=== PATIENT | male | born 1945 ===

== ENCOUNTER 2016-07-07 00:02 | Inpatient (IN) | payer MEDICARE ==
--- NOTE | 2016-07-07 00:25 | ED PDOC ---
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 Son states he was busy and did not have a chance to check on patient during the day. When son found patient by bed patient told son he fell out of bed and hit his head against nightstand. NIHSS Stroke Scale - Date/Time Evaluation Performed Date Performed: 07/07/16 Time Performed: 00:14 When Was NIHSS Performed: Code Stroke - How Severe is the Stroke Level of Consciousness: 1=Drowsy LOC to Questions: 1=One correct LOC to commands: 0=Obeys both correctly Best Gaze: 0=Normal Visual: 0=No visual loss Facial: 1=Minor asymmetry Motor Arm - Left: 3=No effort against gravity (falls immediately) Motor Arm - Right: 0=No drift Motor Leg - Left: 4=No movement Motor Leg - Right: 0=No drift Limb Ataxia: 1=Present Upper or Lower Sensory: 0=Normal Best Language: 1=Mild to moderate aphasia Dysarthia: 1=Mild to moderate slurring Extinction & Inattention (Neglect): 1=Partial neglect (mild owen-attention) Score: 14 rTPA Inclusion/Exclusion - Refusal of Treatment Patient Refused Treatment: No - Inclusion Criteria for Altepase Patient is 18 years or Older: Yes The Clinical Diagnosis of Ischemic Stroke That is Causing a Potentially Disabling Neurological Deficit: No Time of Onset is Well Established to be Less Than 270 Minute Before Treatment Would Begin: No Risk/Benefit Discussed With Patient/Family Member Present: No Past Medical History Reviewed: Historical Data, Nursing Documentation, Vital Signs Vital Signs: Last Vital Signs Temp 98.9 F 07/07/16 00:04 Pulse 65 07/07/16 00:04 Resp 16 07/07/16 00:04 BP 178/75 H 07/07/16 00:04 Pulse Ox 98 07/07/16 00:04 - Medical History PMH: Diabetes, HTN - Surgical History Surgical History: No Surg Hx - Family History Family History: States: No Known Family Hx - Home Medications Home Medications: Ambulatory Orders Medication Instructions Recorded Aspirin [Adult Low Dose Aspirin EC] 81 mg PO DAILY 07/07/16 GlipiZIDE [Glucotrol] 10 mg PO BID 07/07/16 Losartan [Cozaar] 100 mg PO DAILY 07/07/16 Tamsulosin [Flomax] 0.4 mg PO DAILY 07/07/16 amLODIPine [Norvasc] 5 mg PO DAILY 07/07/16 metFORMIN [glucOPHAGE] 1,000 mg PO BID 07/07/16 - Allergies Allergies/Adverse Reactions: Allergies Allergy/AdvReac Type Severity Reaction Status Date / Time No Known Allergies Allergy Verified 07/07/16 00:03 Review of Systems ROS Statement: Except As Marked, All Systems Reviewed And Found Negative Musculoskeletal: Positive for: Other (head injury ) Physical Exam - Reviewed Nursing Documentation Reviewed: Yes Vital Signs Reviewed: Yes - Physical Exam Appears: Positive for: No Acute Distress (disoriented appearing ) Head Exam: Positive for: ATRAUMATIC, NORMAL INSPECTION, NORMOCEPHALIC Skin: Positive for: Normal Color, Warm, Dry Eye Exam: Positive for: Normal appearance, EOMI, PERRL ENT: Positive for: Normal ENT Inspection Neck: Positive for: Normal, Painless ROM, Supple Cardiovascular/Chest: Positive for: Regular Rate, Rhythm. Negative for: Murmur , Tachycardia Respiratory: Positive for: Normal Breath Sounds. Negative for: Wheezing, Respiratory Distress Gastrointestinal/Abdominal: Positive for: Normal Exam, Soft. Negative for: Tenderness Back: Positive for: Normal Inspection. Negative for: L CVA Tenderness, R CVA Tenderness Extremity: Negative for: Tenderness, Deformity, Swelling Neurologic/Psych: Positive for: Alert, Facial Droop (left sided ), Other (1/5 strength LUE, 0/5 strength LLE, 5/5 strength RUE and RLE, dysarthria ). Negative for: Oriented (disoriented ) - Laboratory Results Result Diagrams: 07/07/16 00:40 07/07/16 00:40 - ECG O2 Sat by Pulse Oximetry: 98 Pulse Ox Interpretation: Normal (RA) Medical Decision Making Medical Decision Makin: Impression: CVA vs. intracranial bleed. Plan: CT head EKG Type and screen Labs CXR IVF reassess 0035: CT head impression: Right thalamic intracranial hemorrhage extending into the right lateral ventricle with 1 cm of midline shift, and surrounding vasogenic edema. Difficult to ascertain whether trauma caused the bleed or whether bleed caused the fall? 0040: Case discussed with Dr. Zarate who states patient requires no acute surgical intervention. Advised neurology consult, elevatation of head, ICU admission. States mannitol is not needed at this time, no comment on steroids. Neurology paged. 0051: Spoke with Dr. Rojas who accepted the patient. Neuro exam unchanged. 0116: CT c-spine impression: No acute injury. 330AM: Dr. Rivera called back, stated that patient may in fact benefit from EVD , recommended dexamethasone 4mg IV and keppra 500mg. Spoke with Dr. Zarate once again at 3:53AM and asked about potential EVD, Dr. Zarate states that there is no signs of hydrocephalus at this time, therefore no need for EVD at this time and patient can be watched. 5AM: No change in clinical status. Pt's BP well monitored and maintained while on cardene drip. ICU bed now available. Scribe Attestation: Documented by Chris John acting as a scribe for Abdiel Jackson MD. Provider Scribe Attestation: All medical record entries made by the Scribe were at my direction and personally dictated by me. I have reviewed the chart and agree that the record accurately reflects my personal performance of the history, physical exam, medical decision making, and the department course for this patient. I have also personally directed, reviewed, and agree with the discharge instructions and disposition. Disposition - Clinical Impression Clinical Impression: Intracranial hemorrhage - Patient ED Disposition Is Patient to be Admitted: Yes - Disposition Disposition Time: 00:51 Condition: CRITICAL - POA Present On Arrival: None
[2016-07-07 00:58] LABS: BASO % 0.7 % (0.0-2.0); HEMATOCRIT 37.3 % (35.0-51.0); LYMPH # 0.3 K/uL (1.0-4.3); LYMPH % 3.9 % (20.0-40.0); MEAN CELL VOLUME 85.1 fl (80.0-94.0); MEAN CORPUSCULAR HEMOGLOBIN 28.5 pg (27.0-31.0); MEAN CORPUSCULAR HGB CONC 33.5 g/dL (33.0-37.0); MEAN PLATELET VOLUME 8.1 fl (7.2-11.7); MONO # 0.2 K/uL (0.0-0.8); NEUT # 6.5 K/uL (1.8-7.0); NEUT % 92.4 % (50.0-75.0); PLATELET COUNT 206 K/uL (130-400); RED CELL DISTRIBUTION WIDTH 14.2 % (11.5-14.5)
--- NOTE | 2016-07-07 01:06 | CP.PCM.HP ---
History of Present Illness - History of Present Illness History of Present Illness: PCP: Maurice Diaz MD Chief Complaint:Left side weakness HPI: The Hx is obtained from the patient's Son and the patient. He is a 71 years old male with hx of HTN, DM II and Prostate Cancer, brought to the ED with left sided weakness. He fell out of bed and his head and could not get up from the floor where he remained for approximately 24 hours until his son found him. In the ED the patient was awake and alert and speaking. The NIHSS was 14. TPA was contraindicated because the patient was last seen 24 hours prior. PMH: HTN; DM II; Prostate Ca PSH: No known surgical hx SH: No Illegal drug use; No alcohol use; Former Smoker; Lives in the same building with his son FH: Unknown family hx Allergies: NKDA Present on Admission - Present on Admission Any Indicators Present on Admission: Yes History of DVT/PE: No History of Uncontrolled Diabetes: Yes Urinary Catheter: No Decubitus Ulcer Present: No Review of Systems - Review of Systems Review of Systems: Review of systems limited because of the patients Dysarthria and Neurological dysfunction. Past Patient History - Past Medical History & Family History Past Medical History?: Yes - Past Social History Smoking Status: Former Smoker Chewing Tobacco Use: No Cigar Use: No Alcohol: None Drugs: Denies Home Situation {Lives}: With Family - CARDIAC Hx Hypertension: Yes - PULMONARY Hx Respiratory Disorders: No - NEUROLOGICAL Hx Neurological Disorder: No - HEENT Hx HEENT Problems: No - RENAL Hx Chronic Kidney Disease: No - ENDOCRINE/METABOLIC Hx Diabetes Mellitus Type 2: Yes - HEMATOLOGICAL/ONCOLOGICAL Hx Blood Disorders: No - INTEGUMENTARY Hx Dermatological Problems: No - MUSCULOSKELETAL/RHEUMATOLOGICAL Hx Musculoskeletal Disorders: No - GASTROINTESTINAL Hx Gastrointestinal Disorders: No - GENITOURINARY/GYNECOLOGICAL Hx Prostate Cancer: Yes - PSYCHIATRIC Hx Psychophysiologic Disorder: No Hx Substance Use: No - SURGICAL HISTORY Hx Surgeries: No - ANESTHESIA Hx Anesthesia: No Meds Allergies/Adverse Reactions: Allergies Allergy/AdvReac Type Severity Reaction Status Date / Time No Known Allergies Allergy Verified 07/07/16 00:03 Physical Exam - Constitutional Appears: No Acute Distress - Head Exam Head Exam: ATRAUMATIC Additional comments: left facial weakness - Eye Exam Eye Exam: EOMI, Normal appearance Pupil Exam: NORMAL ACCOMODATION, PERRL - ENT Exam ENT Exam: Mucous Membranes Moist, Normal Exam, Normal External Ear Exam, Normal Oropharynx Additional comments: Edentulous - Neck Exam Neck exam: Positive for: Normal Inspection. Negative for: Lymphadenopathy, Tenderness - Respiratory Exam Respiratory Exam: Clear to Auscultation Bilateral. absent: Rales, Rhonchi, Wheezes - Cardiovascular Exam Cardiovascular Exam: REGULAR RHYTHM, RRR, +S1, +S2. absent: Gallop, JVD - GI/Abdominal Exam GI & Abdominal Exam: Normal Bowel Sounds, Soft. absent: Mass, Organomegaly, Tenderness - Rectal Exam Rectal Exam: Deferred - Extremities Exam Extremities exam: Positive for: normal inspection. Negative for: calf tenderness, pedal edema Additional comments: Decreased range of motion at the left upper and lower extremities. - Back Exam Back exam: NORMAL INSPECTION. absent: CVA tenderness (L), CVA tenderness (R) - Neurological Exam Additional comments: Awake alert, oriented in place time and person, nleft facial droop, mild dysarthria, weakness to the left upper extremity 1/5 and to the left lower extremity 0/5; Plantar reflex is extension at the left foot and flexion at the right foot - Psychiatric Exam Psychiatric exam: Normal Affect, Normal Mood - Skin Skin Exam: Dry, Intact, Normal Color, Warm Results - Vital Signs Recent Vital Signs: Last Vital Signs Temp 98.9 F 07/07/16 00:04 Pulse 65 07/07/16 00:04 Resp 16 07/07/16 00:04 BP 178/75 H 07/07/16 00:04 Pulse Ox 98 07/07/16 01:01 - Labs Result Diagrams: 07/07/16 00:40 07/07/16 00:40 Labs: Laboratory Results - last 24 hr 07/07/16 00:40 WBC 7.0 RBC 4.38 L Hgb 12.5 Hct 37.3 MCV 85.1 MCH 28.5 MCHC 33.5 RDW 14.2 Plt Count 206 MPV 8.1 Neut % (Auto) 92.4 H Lymph % (Auto) 3.9 L [place] % (Auto) 3.0 Eos % (Auto) 0.0 Baso % (Auto) 0.7 Neut # 6.5 Lymph # 0.3 L [place] # 0.2 Eos # 0.0 Baso # 0.0 - Imaging and Cardiology CT- Cervical Spine Status: Report reviewed by me Additional comment: FINDINGS: There are degenerative changes in the osseous structures.Osteophyte formation and articular facet joint hypertrophy is present. The vertebral bodies and facet joints are well aligned. The vertebral body height is well maintained. No subluxation. No fractures. Corticated osseous fragment posterior to C5 spinous process. IMPRESSION: No acute injury. CT scan - head Status: Report reviewed by me Additional comment: FINDINGS: Brain: Acute intracranial hemorrhage is identified within the right thalamus extending into the right lateral ventricle. Mass effect is identified, with 1 cm midline shift. The left cerebral hemisphere is unremarkable. Surrounding vasogenic edema is also detected. Bones: No acute displaced fracture. Sinuses: Unremarkable as visualized. No acute sinusitis. Mastoid air cells: Unremarkable as visualized. No mastoid effusion. IMPRESSION: Right thalamic intracranial hemorrhage extending into the right lateral ventricle with 1 cm of midline shift, and surrounding vasogenic edema. Thank you for allowing us to participate in the care of your patient Assessment & Plan - Assessment and Plan (Free Text) Assessment: #. Intracraneal Hemorrhage #. Dehydration #. Hyperkalemia #. DM II with hyperglycemia #. HTN #. Anemia Plan: 71 years old male with hx of HTN, DM II and Prostate Cancer, brought to the ED with left sided weakness. He fell out of bed and his head and could not get up from the floor where he remained for approximately 24 hours until his son found him. The NIHSS was 14. TPA was contraindicated because the patient was last seen 24 hours prior. #. Intracraneal Hemorrhage with left hemiplegia - Consult Neuro Surgery Dr Zarate - Consult Dr Rivera neurology - Admit to ICU - Control blood pressure with Nicardipine IV drip to maintain MAP 100-110 and [id number] - NPO until cleared by Swallow evaluation - Physical therapy/ Occupational Therapy #. Dehydration - IV Fluids - follow renal labs #. Hyperkalemia - Follow electrolytes #. DM II with hyperglycemia - Novolog sliding scale according to Accucheck - Follow HbA1c #. HTN - Control BP with Nicardipine, Change to oral medication when patient begins to take Oral feeds #. Anemia - follow Iron panel; Vitamin B12 and folate #. Stress ulcer Prophylaxis with Pepcid #. DVT prophylaxis with SCD Code Status; Full - Date & Time Date: 07/07/16 Time: 01:05
[2016-07-07 01:17] LABS: PARTIAL THROMBOPLASTIN TIME 26.9 SECONDS (23.3-32.5)
[2016-07-07 01:18] LABS: ALB/GLOB RATIO 1.3 (1.0-2.1); BILIRUBIN,TOTAL 0.7 mg/dl (0.2-1.3); CALCIUM 9.6 mg/dL (8.4-10.2); POTASSIUM 5.5 MMOL/L (3.6-5.0); TOTAL PROTEIN 8.8 G/DL (6.3-8.2)
[2016-07-07 01:31] LABS: TROPONIN I 0.024 ng/mL (0.00-0.120)
[2016-07-07 01:55] LABS: NEUTROPHIL 91 % (42-75); TOTAL CELLS COUNTED 100
[2016-07-07] MEDS ORDERED: Insulin Regular 100 units/ml SC SCH (02:15)
[2016-07-07] MEDS: Sodium Chloride 0.9% 1,000 ML IV SCH ×3 (03:10→22:30)
[2016-07-07] MEDS ORDERED: Nicardipine 20 MG/200 ML 20 MG/200 ML BAG IV ONE (03:15)
[2016-07-07] MEDS ORDERED: Dexamethasone 4 mg/1 ml ONE (03:41)
[2016-07-07] MEDS ORDERED: Dexamethasone 4 MG in Sodium Chloride 0.9% 50 ML IV ONE (03:42)
[2016-07-07] MEDS ORDERED: levETIRAcetam 500 MG in Sodium Chloride 0.9% 100 ML IVPB ONE (03:43)
[2016-07-07 05:34] LABS: RBC URINE 5 /hpf (0-3); URINE BACTERIA RARE (<OCC); URINE BILIRUBIN NEGATIVE (NEGATIVE); URINE BLOOD MODERATE (NEGATIVE); URINE COLOR YELLOW (YELLOW); URINE GLUCOSE (UA) 150 mg/dL (Normal); URINE KETONE TRACE mg/dL (NEGATIVE); URINE LEUKOCYTE ESTERASE NEG Leu/uL (Negative); URINE PROTEIN >=500 mg/dL (NEGATIVE); URINE UROBILINOGEN 0.2-1.0 mg/dL (0.2-1.0); WBC URINE 1 /hpf (0-5)
[2016-07-07] MEDS: Nicardipine 20 MG/200 ML 20 MG/200 ML BAG IV ONE ×4 (08:19→15:12)
--- NOTE | 2016-07-07 08:35 | CARD ---
APPROVED REPORT EKG Measurement Heart [id number] <Conclusion> Sinus bradycardia with AV dissociation and Junctional rhythm Abnormal ECG
[2016-07-07 09:10] LABS: BLOOD UREA NITROGEN 44 mg/dl (9-20); CALCIUM 9.2 mg/dL (8.4-10.2); CARBON DIOXIDE 17 mmol/L (22-30); CHLORIDE 109 mmol/L (98-107); GFR AFRICAN-AMERICAN 48; GLUCOSE,RANDOM 241 mg/dL (75-110); POTASSIUM 4.5 MMOL/L (3.6-5.0); SODIUM 142 mmol/l (132-148)
[2016-07-07 09:15] LABS: IRON 74 ug/dL (49-181)
--- NOTE | 2016-07-07 09:46 | CT ---
PROCEDURE: CT HEAD WITHOUT CONTRAST. HISTORY: code stroke- L sided hemiparesis COMPARISON: None available. TECHNIQUE: Axial computed tomography images were obtained through the head/brain without intravenous contrast. Radiation dose: Total exam DLP = 1219.0 mGy-cm. This CT exam was performed using one or more of the following dose reduction techniques: Automated exposure control, adjustment of the mA and/or kV according to patient size, and/or use of iterative reconstruction technique. FINDINGS: HEMORRHAGE: There is a moderate-sized elliptical hematoma within the right posterior basal ganglia with a thin rim of low-attenuation edema and or necrotic brain tissue. The hemorrhage has decompressed into the ventricular system with blood seen in the right lateral ventricle as well as atria and occipital horns bilaterally. Hematoma and surrounding the tendon edema exert mass effect with compression of the right lateral ventricle which is slightly displaced to the left side. There is also mild shift of the septum pellucidum from right to left estimated at approximately 6.25 mm. There is also mild posteromedial compression of the right temporal horn. BRAIN: Mild chronic periventricular white matter ischemic changes are present. Tiny chronic appearing lacunar type infarct left basal ganglia. VENTRICLES: As above CALVARIUM: Calvarium appears intact. PARANASAL SINUSES: Unremarkable as visualized. No significant inflammatory changes. MASTOID AIR CELLS: Unremarkable as visualized. No inflammatory changes. OTHER FINDINGS: None. IMPRESSION: Right basal ganglia hematoma likely hypertensive in origin however clinical correlation recommended to exclude other etiologies including underlying vascular lesion. Amyloid angiography would be less likely in this location though also not completely excluded. There is intraventricular extension of hemorrhage and mild [id number] midline shift as above. Mild chronic periventricular white matter ischemic changes with chronic appearing lacunar type infarct left basal ganglia.
--- NOTE | 2016-07-07 09:55 | CT ---
PROCEDURE: CT HEAD WITHOUT CONTRAST. HISTORY: f/u, ICH COMPARISON: None available. TECHNIQUE: Axial computed tomography images were obtained through the head/brain without intravenous contrast. Radiation dose: Total exam DLP = 895.24 mGy-cm. This CT exam was performed using one or more of the following dose reduction techniques: Automated exposure control, adjustment of the mA and/or kV according to patient size, and/or use of iterative reconstruction technique. FINDINGS: HEMORRHAGE: Acute parenchymal hematoma right basal ganglia. . This hemorrhage which may be hypertensive in origin surrounded by a rim of edema and/or necrotic brain tissue. . There has been decompression of hemorrhage into the ventricular system however the amount of intraventricular hemorrhage appears to have diminished likely due to some mild washout and resorption. Persistent but slightly improvement surrounding mass effect with diminished uqjky-[id number]-[id number] midline shift. No new hemorrhages. . No evidence of obstructive type hydrocephalus. BRAIN: Chronic periventricular white matter ischemic changes with chronic appearing left basal ganglia lacunar type infarct of the latter of which is less well seen on this exam as compared prior study. VENTRICLES: As above CALVARIUM: Unremarkable. PARANASAL SINUSES: Unremarkable as visualized. No significant inflammatory changes. MASTOID AIR CELLS: Unremarkable as visualized. No inflammatory changes. OTHER FINDINGS: None. IMPRESSION: Re- demonstrated is an acuteparenchymal hematoma right basal ganglia. . This hemorrhage which may be hypertensive in origin surrounded by a rim of edema and/or necrotic brain tissue. . There has been decompression of hemorrhage into the ventricular system however the amount of intraventricular hemorrhage appears to have diminished likely due to some mild washout and resorption. Persistent but slightly improvement surrounding mass effect with diminished [id number] midline shift. No new hemorrhages. . No evidence of obstructive type hydrocephalus. Moderate chronic periventricular white matter ischemic changes.
--- NOTE | 2016-07-07 09:57 | CT ---
PROCEDURE: CT Cervical Spine without contrast HISTORY: <r/o fracture> COMPARISON: None available. TECHNIQUE: Axial computed tomography images were obtained of the cervical spine without the use of intravenous contrast. Coronal and sagittal reformatted images were created and reviewed. Radiation dose: Total exam DLP = 572.12 mGy-cm. This CT exam was performed using one or more of the following dose reduction techniques: Automated exposure control, adjustment of the mA and/or kV according to patient size, and/or use of iterative reconstruction technique. FINDINGS: VERTEBRAE: No evidence of acute compression fractures no retropulsed fragments. Vertebral bodies exhibit relatively normal stature of. Vertebral bodies and facets normally aligned. There may be partial fusion of the C3 and C4 segments with intradiscal calcification along the anterior disc margin and thin bridging osteophyte along the posterior cortical margin. DISCS/SPINAL CANAL/NEURAL FORAMINA: Multilevel degenerative spondylosis. At the C2-C3 level, there is mild posterior disc space narrowing. Small central and bilateral osteophytic ridge indents the ventral surface of thecal sac nearly reaching but not significantly compressing the ventral surface of the cord. The facets are hypertrophic right greater than left. Exit foramina appear adequate of right-sided which is slightly smaller in caliber than the left. At the C3-C4 level, small central and bilateral osteophytic ridge indents the ventral surface of thecal sac reaching the ventral surface of the cord however no significant cord compression. Central canal appears adequate. Minor degenerative squaring of the uncovertebral joints. Facets are hypertrophic left greater than right. Left exit foramen is stenotic. Right exit foramen is marginal to minimally narrowed. At the C4-C5 level, small central and bilateral osteophytic ridge disc bulge complex indents the ventral surface of the thecal sac and may minimally indent the ventral surface of the cord. Central canal appears marginal to adequate. Facets are slightly overgrown. Exit foramina are adequate. At the C5-C6 level, there is disc space narrowing with cortical endplate irregularity and subchondral cystic changes with smaller vacuum disc phenomena. Small osteophytic ridge disc bulge complex contiguous with hypertrophic uncovertebral joints. Facets are hypertrophic. There is mild central canal narrowing and cord compression. Exit foramina are stenotic bilaterally. At the C6-C7 level, there is adequate disc height. Small central and bilateral though asymmetrically larger on the left than right disc herniation appears to compress the ventral surface of the cord on more so on the left side. The central canal is mildly narrowed. Uncovertebral facets are hypertrophic former more so than latter however the exit foramina are adequate. PARASPINAL SOFT TISSUES: Prevertebral and paraspinal soft tissues unremarkable. Small calcifications seen within the ligamentum nuchae at approximately the C4-C5 level. OTHER FINDINGS: Emphysematous changes seen in the lung apices and upper lung garcía. IMPRESSION: No acute fractures. Multilevel degenerative spondylosis most notably affecting the C5-C6 and C6-C7 levels as above.
--- NOTE | 2016-07-07 10:17 | CP.PCM.PCO ---
Physician Communication Note - Physician Communication Note Physician Communication Note: reviewed ct head remotely. will see pt today/
--- NOTE | 2016-07-07 11:09 | RAD ---
HISTORY: stroke COMPARISON: No prior. FINDINGS: LUNGS: The central pulmonary vasculature is slightly increased possibly due to patient positioning and low lung volumes however mild pulmonary edema cannot be excluded PLEURA: No significant pleural effusion identified, no pneumothorax apparent. CARDIOVASCULAR: Cardiomegaly. Aorta is slightly ectatic and uncoiled. OSSEOUS STRUCTURES: No significant abnormalities. VISUALIZED UPPER ABDOMEN: Normal. OTHER FINDINGS: None. IMPRESSION: The central pulmonary vasculature is slightly increased possibly due to patient positioning and low lung volumes however mild pulmonary edema cannot be excluded
--- NOTE | 2016-07-07 11:29 | CP.CCUPN ---
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 Presently awake and alert, responds appropriately and exhibits mild left hemiparesis, there is also mild left facial droop. SBP levels have been elevated to as high as 170-180s and remains on a Cardene drip at 5mg / hr and just increased to 7.5mg/hr. No overt distress noted. Afebrile, Bp 150/76, HR 61 , 18-20, 99% on RA ROS: as above, no other pertinent negs or positives on 10 system review. PMFSH: All nursing and historical notes reviewed, no new pertinent data relevant to current problems. No other distress noted: EXAM- HEENT: no icterus, pupils equal and reactive NECK: no visible JVD, supple, carotids equal upstroke bilat/no bruits CHEST: decreased BS bases, no wheezes HEART: regular, distant, S1S2, no murmur audible, no rubs. ABD: soft, no increased distention, no focal tenderness, no HSM. BS hypoactive EXT: no edema, no cords or calf tenderness, no peripheral cyanosis. Distal Pulses intact bilat. NEURO: minimal left hemiparesis SKIN: no rashes LABS: WBC= 7.0 HGB= 12.5 PLTs= 206K Coags Normal Na= 142 K= 4.5 CL= 109 HCO3= 17 BUN/Cr= 44/1.7 BS= 241 CK= 784 CXR: RML, R hilar interstitial changes, no old film for comparison (my interp). EKG: sinus brady56/min, otherwise acceptable and normal. MAJOR PROBLEMS NOW: 1. CVA 2 hypertensive ICH 2. s/p Fall at home 3. Azotemia, r/o Rhabdomyolysis 4. DM II PLAN: 1. Neurochecks Q1-2H, Seizure precautions, HOB elevation, repeat brain imaging as per Neuro / NSG. Watch for s/sx obstructive hydrocephalus. Assess for any need for transfer out for any interventional NSG procedures. 2. Keep SBPs no higher than 140-150. 3. IVF hydration with NSS. 4. Follow repeat serial CPK. 5. Speech/ Swallow/ PT/ OT evals. 6. Maintain normoglycemia.
--- NOTE | 2016-07-07 11:44 | RAD ---
PROCEDURE: Pelvis 07/07/2016 HISTORY: Status post fall COMPARISON: No prior FINDINGS: BONES: The current study reveals no evidence of acute displaced fracture nor dislocation. The osseous structures appear intact. Both femoral heads are appropriately located within the respective acetabula. Mild degenerative changes both hip joints left greater than right. SI joints appear intact. If symptoms persist or occult fracture suspected clinically recommend followup CT scan of the pelvis. . Impression: No acute displaced fracture nor dislocation. 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 If symptoms persist or occult fracture suspected clinically recommend followup CT scan.
--- NOTE | 2016-07-07 11:50 | CP.PCM.CON ---
History of Present Illness - History of Present Illness History of Present Illness: dictated R internal capsule ICH with rupture into R f horn only CT stable = no change no hydrocephalus rec HOB elevation mild dehydration recheck ct am Past Patient History - Past Medical History & Family History Past Medical History?: Yes - Past Social History Smoking Status: Former Smoker - CARDIAC Hx Hypertension: Yes - PULMONARY Hx Respiratory Disorders: No - NEUROLOGICAL Hx Neurological Disorder: No - HEENT Hx HEENT Problems: No - RENAL Hx Chronic Kidney Disease: No - ENDOCRINE/METABOLIC Hx Diabetes Mellitus Type 2: Yes - HEMATOLOGICAL/ONCOLOGICAL Hx Blood Disorders: No - INTEGUMENTARY Hx Dermatological Problems: No - MUSCULOSKELETAL/RHEUMATOLOGICAL Hx Musculoskeletal Disorders: No Hx Falls: No - GASTROINTESTINAL Hx Gastrointestinal Disorders: No - GENITOURINARY/GYNECOLOGICAL Hx Prostate Cancer: Yes - PSYCHIATRIC Hx Psychophysiologic Disorder: No Hx Substance Use: No - SURGICAL HISTORY Hx Surgeries: No - ANESTHESIA Hx Anesthesia: No Meds Allergies/Adverse Reactions: Allergies Allergy/AdvReac Type Severity Reaction Status Date / Time No Known Allergies Allergy Verified 07/07/16 00:03 - Medications Medications: Current Medications Famotidine (Pepcid) 20 mg IVP Q12 PAKO Last Admin: 07/07/16 11:03 Dose: 20 mg Sodium Chloride (Sodium Chloride 0.9%) 1,000 mls @ 100 mls/hr IV .Q10H PAKO Stop: 07/08/16 02:18 Last Admin: 07/07/16 03:10 Dose: 100 mls/hr Nicardipine HCl (Cardene Iv Premix) 20 mg in 200 mls @ 50 mls/hr IV .Q4H ONE; 5 MG/HR PRN Reason: Protocol Stop: 07/07/16 12:10 Last Admin: 07/07/16 11:00 Dose: 5 mg/hr, 50 mls/hr Insulin Human Regular (Humulin R) 0 units SC Q6H PAKO PRN Reason: Protocol Last Admin: 07/07/16 11:03 Dose: 6 units Results - Vital Signs Recent Vital Signs: Last Vital Signs Temp 98.4 F 07/07/16 08:00 Pulse 61 07/07/16 08:00 Resp 18 07/07/16 08:37 BP 154/71 H 07/07/16 08:00 Pulse Ox 95 07/07/16 08:00 - Labs Result Diagrams: 07/07/16 00:40 07/07/16 08:35 Labs: Laboratory Results - last 24 hr 07/07/16 07/07/16 07/07/16 02:11 05:15 08:35 Sodium 142 Potassium 4.5 Chloride 109 H Carbon Dioxide 17 L Anion Gap 21 H BUN 44 H Creatinine 1.7 H Est GFR ( Amer) 48 Est GFR (Non-Af Amer) 40 POC Glucose (mg/dL) 292 H Random Glucose 241 H Calcium 9.2 Iron TIBC % Saturation Total Creatine Kinase 784 H Vitamin B12 801 Urine Color Yellow Urine Clarity Clear Urine pH 6.0 Ur Specific [place] 1.017 Urine Protein >=500 Urine Glucose (UA) 150 Urine Ketones Trace Urine Blood Moderate Urine Nitrate Negative Urine Bilirubin Negative Urine Urobilinogen 0.2-1.0 Ur Leukocyte Esterase Neg Urine RBC (Auto) 5 H Urine Microscopic WBC 1 Ur Squamous Epith Cells < 1 Urine Bacteria Rare 07/07/16 07/07/16 08:35 11:02 Sodium Potassium Chloride Carbon Dioxide Anion Gap BUN Creatinine Est GFR ( Amer) Est GFR (Non-Af Amer) POC Glucose (mg/dL) 311 H Random Glucose Calcium Iron 74 TIBC 354 % Saturation 21 Total Creatine Kinase Vitamin B12 Urine Color Urine Clarity Urine pH Ur Specific [place] Urine Protein Urine Glucose (UA) Urine Ketones Urine Blood Urine Nitrate Urine Bilirubin Urine Urobilinogen Ur Leukocyte Esterase Urine RBC (Auto) Urine Microscopic WBC Ur Squamous Epith Cells Urine Bacteria
[2016-07-07] MEDS ORDERED: Pneumococcal 23-Valent Vaccine IM ONE (15:55)
--- NOTE | 2016-07-07 15:59 | CON ---
DATE: 07/07/2016 CHIEF COMPLAINT: Left-sided weakness. HISTORY OF PRESENT ILLNESS: This is a 71-year-old man with history of hypertension, type 2 diabetes mellitus, prostate cancer, came to the hospital for sudden onset left-sided weakness. He fell out of bed and hit his head and could not get up from the floor and remained for approximately 24 hours unt il ____. He came to the ED where he was awake and alert and speaking and underwent a CAT scan of the head which showed acute parenchymal hematoma in the right basal ganglia with some hemorrhage into th e ventricular system. Neurosurgery is on board and said no intervention. He had a repeat CAT scan t his morning, which showed acute ____ parenchymal hematoma in the right basal ganglia. This hemorrhag e may be hypertensive in origin surrounded by a rim of edema and narcotic brain tissue and there has been decompression of the hemorrhage into the ventricular system. However, the amount of intraventri cular hemorrhage appears to have diminished likely due to washout and reabsorption. No evidence of a ny hydrocephalous and very minimal ____ midline shift. No new hemorrhages. Currently, the patient h as left-sided hemiplegia, neglecting the left side, but is able to talk. Denies any headache at this time, slightly drowsy. PAST MEDICAL HISTORY: Type 2 diabetes mellitus, hypertension and prostate cancer. PAST SURGICAL HISTORY: No surgical history. SOCIAL HISTORY: No illicit drug use, smoking, or ETOH abuse. FAMILY HISTORY: Noncontributory. ALLERGIES: No known drug allergies. PHYSICAL EXAMINATION: VITAL SIGNS: Temperature of 98, pulse rate of 80, blood pressure 155/66, respiratory rate of 14, oxy gen 98% via room air. GENERAL: The patient is sitting up in bed in no acute distress. HEENT: Atraumatic, normocephalic. PERRLA. Extraocular muscles intact. NECK: Supple. No JVD. No adenopathy noted. LUNGS: Clear to auscultation. No adventitious sounds. HEART: S1, S2, normal rate and rhythm. No murmur, rub or gallop. ABDOMEN: Soft, nontender, nondistended. Bowel sounds present. EXTREMITIES: No clubbing or cyanosis. Peripheral pulses 2+ felt bilaterally. NEUROLOGIC: The patient is drowsy, but no acute distress. The patient is alert, oriented to person, place and year. Poor attention span, slow thought process. Speech is slightly dysarthric, but no aph aviva noted. MOTOR: He has left-sided hemiparesis in the left upper and lower extremities. Right side is intact. Toes are upgoing bilaterally. SENSORY: Light touch and pinprick decreased up to the calves bilaterally. Decreased vibration of th e toes. Proprioception is intact bilaterally. DEEP TENDON REFLEXES: 2+ throughout and 1 at the knees and absent at the ankles. COORDINATION: [id number] intact with right, but difficult on the left due to left side hemipares is. LABORATORY DATA: Sodium is 142, potassium 4.5, chloride of 109, carbon dioxide 17, BUN of 44, creati nine 1.7, random glucose of 241. ASSESSMENT AND PLAN: This is a 71-year-old man with history of hypertension, type 2 diabetes mellitu s, prostate cancer, brought to the ED with acute onset left-sided weakness after a fall out of his be d and could not get up off the floor for about 24 hours and found to have an acute right intraparench ymal basal ganglia hemorrhage with intraventricular extension which on the repeat CAT scan, some of t he intraventricular extension has diminished. He is currently awake and following simple commands, b ut has some residual left hemiplegia and left side neglect. At this time, recommend: 1. Keep his blood pressure between 130-140 mmHg. 2. Avoid any antiplatelet medications for at least 2 weeks. 3. Hydrate the patient. 4. Monitor the electrolytes and correct accordingly. 5. Prevent hyperglycemic accelerations. Get an A1c and keep his blood sugar between 140-180. 6. He will need acute rehabilitation for physical and occupational therapy. Continue with current p resent medical management. Repeat a CAT scan in 24 hours and follow neurosurgery's evaluation as wel l. ____ mental status. Thank you for this consult. Jim Rivera MD cc: [phone] TT: 07/07/2016 15:58:08 Confirmation # [id number] Dictation # [id number] obi
[2016-07-07] MEDS ORDERED: NICARDIPINE IV SCH (16:00)
[2016-07-07] MEDS ORDERED: WATER IV SCH (16:00)
[2016-07-07] MEDS ORDERED: DEXTROSE 5% IV SCH (16:00)
[2016-07-07] MEDS: Insulin Regular 100 units/ml SC SCH ×2 (16:25→22:00)
[2016-07-07 17:04] LABS: FOLATE > 20.0 ng/mL
[2016-07-08] MEDS: WATER IV SCH (02:00)
[2016-07-08] MEDS: NICARDIPINE IV SCH (02:00)
[2016-07-08] MEDS: DEXTROSE 5% IV SCH (02:00)
[2016-07-08 05:30] LABS: BASO # 0.1 K/uL (0.0-0.2); BASO % 0.7 % (0.0-2.0); EOS # 0.1 K/uL (0.0-0.7); EOS % 0.7 % (0.0-4.0); LYMPH # 0.9 K/uL (1.0-4.3); LYMPH % 12.5 % (20.0-40.0); MEAN CELL VOLUME 84.7 fl (80.0-94.0); MEAN CORPUSCULAR HEMOGLOBIN 29.5 pg (27.0-31.0); MEAN CORPUSCULAR HGB CONC 34.9 g/dL (33.0-37.0); MONO # 0.7 K/uL (0.0-0.8); MONO % 9.4 % (0.0-10.0); NEUT # 5.7 K/uL (1.8-7.0); NEUT % 76.7 % (50.0-75.0); RED CELL DISTRIBUTION WIDTH 14.4 % (11.5-14.5); WHITE BLOOD COUNT 7.5 K/uL (4.8-10.8)
[2016-07-08 05:56] LABS: ALB/GLOB RATIO 1.3 (1.0-2.1); BILIRUBIN,TOTAL 0.4 mg/dl (0.2-1.3); CALCIUM 8.5 mg/dL (8.4-10.2); POTASSIUM 4.3 MMOL/L (3.6-5.0); TOTAL PROTEIN 6.6 G/DL (6.3-8.2)
[2016-07-08] MEDS: Insulin Regular 100 units/ml SC SCH ×4 (07:22→22:24)
--- NOTE | 2016-07-08 09:57 | CT ---
PROCEDURE: CT HEAD WITHOUT CONTRAST. HISTORY: f/u intracranial hemorrhage COMPARISON: 07/07/2016 TECHNIQUE: Axial computed tomography images were obtained through the head/brain without intravenous contrast. Radiation dose: Total exam DLP = 1188.55 mGy-cm. This CT exam was performed using one or more of the following dose reduction techniques: Automated exposure control, adjustment of the mA and/or kV according to patient size, and/or use of iterative reconstruction technique. FINDINGS: HEMORRHAGE: Stable acute right basal ganglia hemorrhage. No change in size. There is a surrounding zone of low attenuation about the hemorrhage which may represent edema or ischemic parenchyma. Tiny new acute blood seen in left occipital lobe, possibly parenchymal. Cannot rule out tiny subarachnoid blood. This is seen on series 4, image 26. No other subarachnoid or extra-axial blood seen elsewhere. BRAIN: No mass effect or edema. Mild periventricular white matter lucency consistent with chronic microvascular ischemic change. VENTRICLES: Intraventricular hemorrhage in the lateral ventricles, right greater than left. No hydrocephalus. 3 mm midline shift towards the left, unchanged from prior examination. CALVARIUM: Unremarkable. PARANASAL SINUSES: Unremarkable as visualized. No significant inflammatory changes. MASTOID AIR CELLS: Unremarkable as visualized. No inflammatory changes. OTHER FINDINGS: None. IMPRESSION: Stable acute right basal ganglia hematoma with surrounding edema or ischemic parenchyma. Stable 3 mm midline shift towards the left. Bilateral intraventricular hemorrhage, right greater than left. Tiny new focal hemorrhage left occipital lobe which may be parenchymal or may represent a tiny amount of subarachnoid blood. No other subarachnoid hemorrhage seen elsewhere. No other acute abnormality.
--- NOTE | 2016-07-08 11:59 | CP.PCM.PN ---
Subjective - Date & Time of Evaluation Date of Evaluation: 07/08/16 Time of Evaluation: 11:59 - Subjective Subjective: pt seen examined bedside 98.5 60 145/70 19 93 on RA left sided deficits stable no complaints no acute distress vss Objective - Vital Signs/Intake and Output Vital Signs (last 24 hours): Temp Pulse Resp BP Pulse Ox 99.1 F 60 25 H 162/90 H 93 L 07/08/16 07:45 07/08/16 07:45 07/08/16 07:45 07/08/16 07:45 07/08/16 07:45 Intake and Output: 07/08/16 07/08/16 06:59 18:59 Intake Total 1201 100 Output Total 600 Balance 601 100 - Medications Medications: Current Medications Amlodipine Besylate (Norvasc) 10 mg PO DAILY PAKO Last Admin: 07/08/16 09:41 Dose: 10 mg Famotidine (Pepcid) 20 mg IVP Q12 PAKO Last Admin: 07/08/16 09:42 Dose: 20 mg Nicardipine HCl 50 mg/ (Dextrose) 250 mls @ 50 mls/hr IV .Q5H PAKO; 10 MG/HR PRN Reason: Protocol Last Titration: 07/08/16 10:30 Dose: 7.5 mg/hr, 37.5 mls/hr Insulin Human Regular (Humulin R) 0 units SC ACHS PAKO PRN Reason: Protocol Last Admin: 07/08/16 10:57 Dose: 8 unit - Labs Labs: 07/08/16 04:20 07/08/16 04:20 PT 10.8 SECONDS (9.6-11.2) 07/07/16 00:40 INR 1.04 (0.92-1.08) 07/07/16 00:40 APTT 26.9 SECONDS (23.3-32.5) 07/07/16 00:40 - Constitutional Appears: Non-toxic, No Acute Distress - Head Exam Head Exam: ATRAUMATIC, NORMOCEPHALIC - Eye Exam Eye Exam: EOMI, Normal appearance, PERRL - ENT Exam ENT Exam: Mucous Membranes Moist, Normal Oropharynx - Neck Exam Neck Exam: Normal Inspection. absent: Lymphadenopathy - Respiratory Exam Respiratory Exam: Clear to Ausculation Bilateral, NORMAL BREATHING PATTERN. absent: Wheezes - Cardiovascular Exam Cardiovascular Exam: RRR, +S1, +S2. absent: Gallop, Rubs - GI/Abdominal Exam GI & Abdominal Exam: Soft, Normal Bowel Sounds. absent: Tenderness, Mass - Extremities Exam Extremities Exam: Normal Capillary Refill. absent: Calf Tenderness - Back Exam Back Exam: absent: CVA tenderness (L), CVA tenderness (R) - Neurological Exam Neurological Exam: Alert, Awake - Psychiatric Exam Psychiatric exam: Normal Affect, Normal Mood - Skin Skin Exam: Dry, Warm Assessment and Plan - Assessment and Plan (Free Text) Plan: 71 years old male with hx of HTN, DM II and Prostate Cancer, brought to the ED with left sided weakness. He fell out of bed and his head and could not get up from the floor where he remained for approximately 24 hours until his son found him. The NIHSS was 14. TPA was contraindicated because the patient was last seen 24 hours prior. Intracranial Hemorrhage with left hemiplegia CT showed acute R basal ganglia hematoma with surrounding edema which is stable on repeat CT today. Today patiend did have tiny new focal hemorrhage L occipital lobe, will monitor - maintain BP under 140 systolic - Consult Neuro Surgery Dr Zarate -- HOB elevation and CT head is stable per neurosx - Consult Dr Rivera neurology - Admit to ICU - Control blood pressure with Nicardipine IV drip -- d/c today - Swallow eval completed, on PO - Physical therapy/ Occupational Therapy Dehydration - IV Fluids - follow renal labs Hyperkalemia - Follow electrolytes DM II with hyperglycemia - Novolog sliding scale according to Accucheck - Follow HbA1c HTN - Controlled Anemia - follow Iron panel; Vitamin B12 and folate Stress ulcer Prophylaxis with Pepcid DVT prophylaxis with SCD Code Status; Full
--- NOTE | 2016-07-08 12:37 | CP.CCUPN ---
CCU Subjective - Physician Review Subjective (Free Text): [employer]AL[employer]ER PROGRESS NOTE Patient examined, interim events reviewed, discussed with PMD: Presently awake and alert, responds appropriately and exhibits mild left hemiparesis, mild left facial droop. SBP levels have been elevated to as high as 160s and remains on a Cardene drip at 2.5mg / hr. No overt distress noted. Bradycardia persists especially while sleeeping and now appears irregular, EKG shows A fib as compared to sinus shyanne yesterday. [place]feb[place] B[place] 41951, HR 61, 18 -20, 99% on RA ROS: as above, no other pertinent negs or positives on 10 system review. PMFSH: All nursing and historical notes reviewed, no new pertinent data relevant to current problems. No other distress noted: EXAM- HEENT: no icterus, pupils equal and reactive NECK: no visible JVD, supple, carotids equal upstroke bilat/no bruits CHEST: decreased BS bases, no wheezes HEART: regular, distant, S1S2, no murmur audible, no rubs. ABD: soft, no increased distention, no focal tenderness, no HSM. BS hypoactive EXT: no edema, no cords or calf tenderness, no peripheral cyanosis. Distal Pulses intact bilat. NEURO: left hemiparesis SKIN: no rashes LABS: WBC= 7.5 HGB= 10.5 PLTs= 168K Coags Normal Na= 140 K= 4.3 CL= 111 HCO3= 17 BUN/Cr= 46/2.1 BS= 209 CK= 784 MAJOR PROBLEMS NOW: 1. CVA 2 Hypertensive ICH 2. New Onset / Parosymal A fib 3. s/p Fall at home 4. Azotemia, r/o Rhabdomyolysis 5. DM II PLAN: 1. Repeat CT Brain today interpreted with possible new small SAH bleed on left. 2. BP level control with addition of ACEi. 3. Ongoing IVF hydration with NSS. 4. Watch A Fib rate, no specific treatment for now nor any AC. 5. Maintain normoglycemia.
--- NOTE | 2016-07-08 12:42 | CP.PCM.PN ---
Subjective - Date & Time of Evaluation Date of Evaluation: 07/08/16 Time of Evaluation: 12:38 - Subjective Subjective: PT neurologically stable eyes are open o to name only names objects follows all commands eomi mild facial moves r side with ex strength dense L hemiparesis CT is unchanged = no inc in hematoma/ME/Shift and no hydrocephalus p stable no nrs involvement required suggest mobilization/PT/OT/ST Objective - Vital Signs/Intake and Output Vital Signs (last 24 hours): Temp Pulse Resp BP Pulse Ox 98.5 F 67 28 H 159/57 H 90 L 07/08/16 12:32 07/08/16 12:32 07/08/16 12:32 07/08/16 12:32 07/08/16 12:32 Intake and Output: 07/08/16 07/08/16 06:59 18:59 Intake Total 1201 300 Output Total 600 Balance 601 300 - Medications Medications: Current Medications Amlodipine Besylate (Norvasc) 10 mg PO DAILY [facility] Last Admin: 07/08/16 09:41 Dose: 10 mg Enalapril Maleate (Vasotec) 10 mg PO DAILY [facility] Enalaprilat (Vasotec Iv) 1.25 mg IV Q6 PRN PRN Reason: Systolic Blood Pressure Famotidine (Pepcid) 40 mg PO HS [facility] Nicardipine HCl 50 mg/ (Dextrose) 250 mls @ 50 mls/hr IV .Q5H PAKO; 10 MG/HR PRN Reason: Protocol Last Titration: 07/08/16 10:30 Dose: 7.5 mg/hr, 37.5 mls/hr Sodium Chloride (Sodium Chloride 0.9%) 1,000 mls @ 125 mls/hr IV .Q8H PAKO Stop: 07/09/16 12:33 Insulin Human Regular (Humulin R) 0 units SC ACHS PAKO PRN Reason: Protocol Last Admin: 07/08/16 10:57 Dose: 8 unit - Labs Labs: 07/08/16 04:20 07/08/16 04:20 PT 10.8 SECONDS (9.6-11.2) 07/07/16 00:40 INR 1.04 (0.92-1.08) 07/07/16 00:40 APTT 26.9 SECONDS (23.3-32.5) 07/07/16 00:40
[2016-07-08] MEDS: Sodium Chloride 0.9% 1,000 ML IV SCH ×2 (13:00→19:56)
--- NOTE | 2016-07-08 15:12 | CON ---
DATE: 07/07/2016 This is a 71-year-old gentleman who was found down, probably for some time between a few hours to 24 hours, probably closer to the latter, unresponsive with a left hemiparesis, brought urgently to [facility] ER. I was contacted while he was in the ER at 1:00 in the morning, for what is a right mostly ghada lamic and internal capsule bleed with mild rupture into the ventricular system. There was no hydroce phalus. I recommended medical management. Interviewing him today, he is interestingly bright, awake and alert. He is somewhat confused, but is oriented to his name. He names objects presented. He follows all commands quite briskly. His past medical history, medications, allergies, social history all reviewed in the chart. PHYSICAL EXAMINATION: NEUROLOGIC: Again, he is bright, awake and alert, oriented, x 1-1/2. He follows all commands. EOMs are full. He has excellent strength throughout the right side. He has a dense left hemiparesis. S ensory exam again grossly intact on the right with deficits on the left. CT of the brain was repeated approximately 8 hours after presentation. There is a small to moderate size intraparenchymal hematoma, predominantly in the right thalamus and internal capsule. There is a small amount of blood that ruptured into the right lateral ventricle only. There is no hydrocephalu s. There is no blood in the third ventricle, the aqueduct or the fourth ventricle. IMPRESSION AND PLAN: My recommendation would be to manage this patient conservatively. Unfortunatel y, the hemorrhage, while not particularly large, is at a very bad located and he is unlikely to make significant improvement in his left hemiparesis. On the other hand, he is quite stable and not in da nger. There is no need for a ventriculostomy or other intracranial pressure measures. My full recom mendation would be head of bed elevation, mild dehydration. We will repeat the CAT scan tomorrow tori whitaker. Howard Zarate MD cc: [id number] TT: 07/08/2016 15:11:19 Confirmation # [id number] Dictation # [id number] en
[2016-07-08] MEDS ORDERED: Chlorhexidine Gluconate 1 APPL/PKT TP ONE (17:48)
[2016-07-08] MEDS: EnalaprilAT 1.25 mg/ml Inj IV PRN ×2 (18:00→23:53)
--- NOTE | 2016-07-08 18:52 | PN ---
DATE: 07/08/2016 CHIEF COMPLAINT: Follow up for status post left hemiparesis, left facial droop from an acute right i ntraparenchymal bleed. SUBJECTIVE: The patient is awake, alert, mild left hemiparesis, left-sided neglect and mild le ft facial droop. His blood pressures have been elevated in the 160s and he is being managed by ICU. A repeat CAT scan was done today, which showed a stable acute right basal ganglia hematoma with surr ounding edema or ischemia with a stable mm midline shift towards the left and an intraventricul ar hemorrhage and a small tiny new hemorrhage left occipital lobe, which may represent some subarachn oid blood. Neurosurgery has seen the patient and is on board and recommended no neurosurgical interv ention at this time, just get PT and OT. PAST MEDICAL HISTORY: Type 2 diabetes mellitus, hypertension and prostate cancer. PAST SURGICAL HISTORY: Nothing significant. SOCIAL HISTORY: No illicit drug use, smoking, or ETOH abuse. FAMILY HISTORY: Noncontributory. ALLERGIES: No known drug allergies. REVIEW OF SYSTEMS: A 14-point review of systems is negative except for the HPI. PHYSICAL EXAMINATION: VITAL SIGNS: Temperature 99.6, pulse rate 60, blood pressure 140/70, respiratory rate of 19, oxygen saturation of 97% on room air. GENERAL: The patient is sitting up in bed in no acute distress. HEENT: Atraumatic, normocephalic. PERRLA. Extraocular muscles intact. NECK: Supple, no JVD, no adenopathy noted. LUNGS: Clear to auscultation. No adventitious sounds. HEART: S1, S2, normal rate and rhythm. No murmurs, rubs, or gallops. ABDOMEN: Soft, nontender, nondistended. Bowel sounds are present. EXTREMITIES: No clubbing, no cyanosis. Peripheral pulses 2+ felt bilaterally. NEUROLOGIC: The patient is drowsy but alert and follows simple commands. He is oriented to person, place and year. Poor attention span, slow thought process. Speech is slightly dysarthric, but no ap hasia noted. MOTOR: Has left-sided hemiparesis in the left upper and lower extremity. Right side is intact. Toe s are upgoing bilaterally. SENSORY: Light touch and pinprick decreased up to the calves bilaterally, decreased vibration of the toes. Proprioception intact bilaterally. He has mild left-sided neglect. DTRs are 2+ and 1 at the knees, absent at the ankles. COORDINATION: [id number] intact, but difficult on the left due to left hemiparesis. LABORATORIES: Sodium is 140, potassium 4.3, chloride 111, carbon dioxide 17, BUN 46, creatinine 2.1, random glucose 209. He has been having hyperglycemic accelerations throughout. ASSESSMENT AND PLAN: This is a 71-year-old man with a past medical history of hypertension, type 2 d iabetes mellitus, prostate cancer, brought to the hospital because of acute left-sided weakness after falling out of bed and could not get up for 24 hours, found to have an acute right intraparenchymal basal ganglia hemorrhage with interventricular extension, which on repeat CAT scan showed not much ch anges, just an old tiny possible left occipital lobe hemorrhage, which represents some subarachnoid b lood. He has been having hyperglycemic fluctuations throughout his stay as well as still being hyper tensive. His presentation is likely secondary to diffuse atherosclerosis and poorly controlled blood pressure, hypertension. At this time, recommend: 1. To keep his blood pressure between 130-140 mmHg. 2. Avoid any antiplatelet medication for at least 2 weeks from the onset of bleed. 3. Hydrate the patient. 4. Monitor his electrolytes and correct accordingly. 5. Prevent hyperglycemic accelerations and keep his blood sugars between 140-180. 6. He will need acute rehabilitation for physical and occupational therapy. At this time, continue with current present medical management. No further neurological workup at is time. Please reconsult if there is any change. Jim Rivera MD cc: [phone] TT: 07/08/2016 18:51:25 Confirmation # [id number] Dictation # [id number] gerson
[2016-07-09] MEDS: DEXTROSE 5% IV SCH ×2 (00:45→06:37)
[2016-07-09] MEDS: NICARDIPINE IV SCH ×2 (00:45→06:37)
[2016-07-09] MEDS: WATER IV SCH ×2 (00:45→06:37)
[2016-07-09] MEDS: Sodium Chloride 0.9% 1,000 ML IV SCH (04:18)
[2016-07-09] MEDS: EnalaprilAT 1.25 mg/ml Inj IV PRN (06:16)
[2016-07-09] MEDS ORDERED: Dextrose 5%/0.45% NS 1,000 ML IV SCH (07:30)
[2016-07-09 08:02] LABS: BASO # 0.1 K/uL (0.0-0.2); BASO % 1.3 % (0.0-2.0); EOS # 0.3 K/uL (0.0-0.7); EOS % 3.1 % (0.0-4.0); HEMATOCRIT 32.1 % (35.0-51.0); LYMPH # 1.3 K/uL (1.0-4.3); LYMPH % 12.6 % (20.0-40.0); MEAN CELL VOLUME 85.2 fl (80.0-94.0); MEAN CORPUSCULAR HEMOGLOBIN 29.2 pg (27.0-31.0); MEAN CORPUSCULAR HGB CONC 34.3 g/dL (33.0-37.0); MEAN PLATELET VOLUME 8.1 fl (7.2-11.7); MONO # 0.8 K/uL (0.0-0.8); MONO % 7.8 % (0.0-10.0); NEUT # 7.9 K/uL (1.8-7.0); NEUT % 75.2 % (50.0-75.0)
[2016-07-09 08:12] LABS: WHITE BLOOD COUNT 10.6 K/uL (4.8-10.8)
[2016-07-09] MEDS: Insulin Regular 100 units/ml SC SCH ×4 (08:12→22:00)
--- NOTE | 2016-07-09 08:21 | CP.CCUPN ---
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 SBP levels have been elevated to as high as 180s and remains on a Cardene drip at 12.5mg / hr. No overt distress noted. Afebrile now, but spike to 101.5 F yesterday, SBPs remain in 170-180's, slighht improvement in bradycardia, HR at 80's at times. RR 18-20, 99% on RA ROS: as above, no other pertinent negs or positives on 10 system review. PMFSH: All nursing and historical notes reviewed, no new pertinent data relevant to current problems. No other distress noted: EXAM- HEENT: no icterus, pupils equal and reactive NECK: no visible JVD, supple, carotids equal upstroke bilat/no bruits CHEST: decreased BS bases, no wheezes HEART: regular, distant, S1S2, no murmur audible, no rubs. ABD: soft, no increased distention, no focal tenderness, no HSM. BS hypoactive EXT: no edema, no cords or calf tenderness, no peripheral cyanosis. Distal Pulses intact bilat. NEURO: left hemiparesis SKIN: no rashes LABS: WBC= 10.6 HGB= 11.0 PLTs= 185K Coags Normal Na= 140 K= 4.3 CL= 111 HCO3= 17 BUN/Cr= 46/2.1 BS= 209 CK= 784 MAJOR PROBLEMS NOW: 1. CVA 2 Hypertensive ICH 2. New Onset / Parosymal A fib 3. s/p Fall at home 4. Azotemia, r/o Rhabdomyolysis vs renal autoregulation with control of HTN 5. DM II PLAN: 1. Repeat 3rd CT Brain yesterday interpreted with possible new small SAH bleed on left, other previous changes stable. 2. BP level control with addition of ACEi yesterday , and dosage increased today. PO Labetalol added to regimen as well. Taper Cardene off 3. Ongoing IVF hydration if CPK levels remain elevated. 4. A Fib self converted yesterday back to sinus rhythm, no specific treatment for now nor any AC. 5. Maintain normoglycemia. 6. Speech/ PT/OT / Rehab as per Neuro /NSG
[2016-07-09 08:25] LABS: ALB/GLOB RATIO 1.3 (1.0-2.1); BILIRUBIN,TOTAL 0.8 mg/dl (0.2-1.3); CALCIUM 8.8 mg/dL (8.4-10.2); POTASSIUM 4.2 MMOL/L (3.6-5.0); TOTAL PROTEIN 6.8 G/DL (6.3-8.2)
--- NOTE | 2016-07-09 08:53 | CP.PCM.PN ---
Subjective - Date & Time of Evaluation Date of Evaluation: 07/09/16 Time of Evaluation: 08:45 - Subjective Subjective: Patient seen and examined bedside. Awake , alert , following commands. Denies any discomfort.Answering questions but has slurred speech. No acute issues overnight Still being monitored in ICU for uncontrolled BP. On cardene drip BP 165/65 , sinus rhythm on monitor with HR 72 O3Sat 96 % on 2 L O2 via NC febrile with Tmax 102.1 WBC 10 Hgb 11 BUN/Cr 33/1.[address] head :Stable acute right basal ganglia hematoma with surrounding edema or ischemic parenchyma. Stable 3 mm midline shift towards the left. Bilateral intraventricular hemorrhage, right greater than left. Tiny new focal hemorrhage left occipital lobe which may be parenchymal or may represent a tiny amount of subarachnoid blood. No other subarachnoid hemorrhage seen elsewhere. No other acute abnormality. Objective - Vital Signs/Intake and Output Vital Signs (last 24 hours): Temp Pulse Resp BP Pulse Ox 102.1 F H 70 23 165/65 H 99 07/09/16 08:00 07/09/16 08:18 07/09/16 08:00 07/09/16 08:18 07/09/16 08:00 Intake and Output: 07/09/16 07/09/16 06:59 18:59 Intake Total 1413.5 150 Balance 1413.5 150 - Medications Medications: Current Medications Acetaminophen (Tylenol 325mg Tab) 650 mg PO Q6 PRN PRN Reason: Pain, Mild (1-3) Amlodipine Besylate (Norvasc) 10 mg PO DAILY [facility] Last Admin: 07/09/16 08:18 Dose: 10 mg Enalapril Maleate (Vasotec) 20 mg PO DAILY [facility] Enalaprilat (Vasotec Iv) 1.25 mg IV Q6 PRN PRN Reason: Systolic Blood Pressure Last Admin: 07/09/16 06:16 Dose: 1.25 mg Famotidine (Pepcid) 40 mg PO HS [facility] Last Admin: 07/08/16 22:29 Dose: Not Given Nicardipine HCl 50 mg/ (Dextrose) 250 mls @ 50 mls/hr IV .Q5H PAKO; 10 MG/HR PRN Reason: Protocol Last Titration: 07/09/16 06:41 Dose: 15 mg/hr, 75 mls/hr Dextrose/Sodium Chloride (Dextrose 5%/0.45% Ns 1000 Ml) 1,000 mls @ 80 mls/hr IV .[id number] [facility] Stop: 07/10/16 07:17 Last Admin: 07/09/16 08:08 Dose: 80 mls/hr Insulin Human Regular (Humulin R) 0 units SC ACHS [facility] PRN Reason: Protocol Last Admin: 07/09/16 08:12 Dose: 3 unit Labetalol HCl (Trandate) 200 mg PO BID [facility] - Labs Labs: 07/09/16 06:30 07/09/16 06:30 PT 10.8 SECONDS (9.6-11.2) 07/07/16 00:40 INR 1.04 (0.92-1.08) 07/07/16 00:40 APTT 26.9 SECONDS (23.3-32.5) 07/07/16 00:40 - Constitutional Appears: Non-toxic, No Acute Distress - Head Exam Head Exam: ATRAUMATIC, NORMOCEPHALIC - Eye Exam Eye Exam: EOMI, PERRL Pupil Exam: NORMAL ACCOMODATION - ENT Exam ENT Exam: Mucous Membranes Moist, Normal Exam - Neck Exam Neck Exam: Normal Inspection - Respiratory Exam Respiratory Exam: Respiratory Distress. absent: Rhonchi, Wheezes Additional comments: coarse breath sounds bilaterally - Cardiovascular Exam Cardiovascular Exam: REGULAR RHYTHM, RRR, +S1, +S2. absent: JVD - GI/Abdominal Exam GI & Abdominal Exam: Soft, Normal Bowel Sounds. absent: Distended, Guarding, Tenderness, Rebound - Rectal Exam Rectal Exam: Deferred - Extremities Exam Extremities Exam: Full ROM, Normal Capillary Refill, Normal Inspection. absent : Pedal Edema - Back Exam Back Exam: NORMAL INSPECTION - Neurological Exam Neurological Exam: Alert, Awake Additional comments: left facial droop slurred speech and aphasia dysphagia left hemiparesis - Psychiatric Exam Psychiatric exam: Normal Affect - Skin Skin Exam: Dry, Intact, Normal Color, Warm Assessment and Plan - Assessment and Plan (Free Text) Assessment: 71 years old male with hx of HTN, DM II and Prostate Cancer, brought to the ED with left sided weakness. He fell out of bed and could not get up from the floor where he remained for approximately 24 hours until his son found him. The NIHSS was 14. CT head showed acute right basal ganglia hematoma with edema . Patient was admitted in ICU, neurology and neurosurgery were consulted. Repeat Ct head showed stable bleed , tiny new left occipital lobe bleed. He is in ICU on cardene drip for uncontrolled BP .He has expressive aphasia, left hemiparesis and left facial droop. 1.Intracranial Hemorrhage with left hemiplegia Repeat Ct showed Stable acute right basal ganglia hematoma with surrounding edema or ischemic parenchyma. Stable 3 mm midline shift towards the left. Bilateral intraventricular hemorrhage, right greater than left. Tiny new focal hemorrhage left occipital lobe which may be parenchymal or may represent a tiny amount of subarachnoid blood. Avoid any antiplatelet or anticoagugulation Patient with expressive aphasia, left facial droop, dysphagia and left hemiparesis Neurology and neurosurgery consultd. No surgical intervention indicated at present BP still not well controlled on cadene drip. Started labetalol 200 mg po BID and Enalapril 20 mg po Qd today .Continue norvasc 10 mg QD. Will hollis cardene drip Patient has problems with swallowing. Follow recommendations from swallow eval keep HOB elevated Start Physical therapy/ Occupational Therapy 2. Paraxysmal afib Back in SR on monitor 3. Acute kidney injury Most likely prerenal , unknown prior kidney function Continue IVF BUN/Cr 33/1.9 4. Acute rhabdomyelysis CPK 784 Continue hydration Dehydration 5.Hyperglycemia Hgba1c 6.1 Change IVF from D5 to NS Continue monitoring accu with Novolog sliding scale 6. Fever unclear source possible related to intracranial bleed but will need to rule out any other source of infection Sanders catheter removed yesterday. Check UA CXR today to rule out any aspiration pneumonia/pneumonitis 7.Hypertension uncontrolled on Cardene drip Started labetalol 200 mg po BId, Enalapril 20 mg Po Qd Continue Norvasc 10 mg po Qd titrate to d/c cardene drip 8. Dyslipidemia Tg 166 Chol 242 LDL 134 Start Atorvastatin 9.Mild Anemia Most likely dilutional 10.Stress ulcer Prophylaxis Pepcid 11. DVT prophylaxis SCD Code Status; Full
[2016-07-09] MEDS ORDERED: Sodium Chloride 0.9% 1,000 ML IV SCH (09:30)
--- NOTE | 2016-07-09 10:59 | RAD ---
PROCEDURE: CHEST RADIOGRAPH, 1 VIEW HISTORY: r/o aspiration pneumonitis COMPARISON: 07/07/2016 FINDINGS: LUNGS: Increased pulmonary vascular congestion. PLEURA: Small pleural effusion on the left. CARDIOVASCULAR: Enlarged cardiomediastinal silhouette. OSSEOUS STRUCTURES: The osseous structures demonstrate degenerative changes. VISUALIZED UPPER ABDOMEN: Upper abdomen is suboptimally evaluated. OTHER FINDINGS: None. IMPRESSION: Increased pulmonary vascular congestion with small pleural effusion on the left. Underlying CHF should be considered. Repeat evaluation right PA lateral views should be considered.
[2016-07-09] MEDS: Nicardipine 20 MG/200 ML 20 MG/200 ML BAG IV ONE ×2 (11:02→12:50)
--- NOTE | 2016-07-09 12:58 | CARD ---
APPROVED REPORT EKG Measurement Heart [id number] <Conclusion> ??Atrial fibrillation (Please repeat to R/O) Abnormal ECG
[2016-07-10 07:10] LABS: HEMATOCRIT 26.9 % (35.0-51.0); MEAN CELL VOLUME 85.3 fl (80.0-94.0); MEAN CORPUSCULAR HEMOGLOBIN 29.2 pg (27.0-31.0); MEAN CORPUSCULAR HGB CONC 34.3 g/dL (33.0-37.0); WHITE BLOOD COUNT 7.4 K/uL (4.8-10.8)
[2016-07-10] MEDS: Insulin Regular 100 units/ml SC SCH ×4 (07:12→22:00)
[2016-07-10 07:20] LABS: CALCIUM 8.4 mg/dL (8.4-10.2); POTASSIUM 4.5 MMOL/L (3.6-5.0)
--- NOTE | 2016-07-10 07:26 | CP.PCM.PN ---
Subjective - Date & Time of Evaluation Date of Evaluation: 07/10/16 Time of Evaluation: 08:00 - Subjective Subjective: Patient seen and examined bedside. Awake , alert , following commands. Denies any discomfort.Answering questions , has left side hemiparesis with neglect , some expressive aphasia No acute issues overnight Off cardene drip , sinus rhythm on monitor with HR 74 , BP 137/56 O2Sat 96 % on 2 L O2 via NC Tmax 100.6 last 12 hours WBC 7 Hgb 11 K 3.3 Objective - Vital Signs/Intake and Output Vital Signs (last 24 hours): Temp Pulse Resp BP Pulse Ox 100.6 F H 64 22 153/66 H 98 07/10/16 04:17 07/10/16 06:00 07/10/16 06:00 07/10/16 06:00 07/10/16 06:00 Intake and Output: 07/10/16 07/10/16 06:59 18:59 Intake Total 480 Output Total 150 Balance 330 - Medications Medications: Current Medications Acetaminophen (Tylenol 325mg Tab) 650 mg PO Q6 PRN PRN Reason: Pain, Mild (1-3) Last Admin: 07/10/16 04:17 Dose: 650 mg Amlodipine Besylate (Norvasc) 10 mg PO DAILY [facility] Last Admin: 07/09/16 08:18 Dose: 10 mg Atorvastatin Calcium (Lipitor) 20 mg PO DAILY [facility] Enalapril Maleate (Vasotec) 20 mg PO DAILY [facility] Last Admin: 07/09/16 17:26 Dose: Not Given Enalaprilat (Vasotec Iv) 1.25 mg IV Q6 PRN PRN Reason: Systolic Blood Pressure Last Admin: 07/09/16 06:16 Dose: 1.25 mg Famotidine (Pepcid) 40 mg PO HS [facility] Last Admin: 07/09/16 21:42 Dose: 40 mg Hydralazine HCl (Apresoline) 50 mg PO QID [facility] Last Admin: 07/09/16 21:41 Dose: 50 mg Nicardipine HCl 50 mg/ (Dextrose) 250 mls @ 50 mls/hr IV .Q5H [facility]; 10 MG/HR PRN Reason: Protocol Last Titration: 07/09/16 06:41 Dose: 15 mg/hr, 75 mls/hr Insulin Human Regular (Humulin R) 0 units SC ACHS [facility] PRN Reason: Protocol Last Admin: 07/10/16 07:12 Dose: 2 unit - Labs Labs: 07/10/16 05:30 07/10/16 05:30 PT 10.8 SECONDS (9.6-11.2) 07/07/16 00:40 INR 1.04 (0.92-1.08) 07/07/16 00:40 APTT 26.9 SECONDS (23.3-32.5) 07/07/16 00:40 - Constitutional Appears: Non-toxic, No Acute Distress - Head Exam Head Exam: ATRAUMATIC, NORMAL INSPECTION, NORMOCEPHALIC - Eye Exam Eye Exam: EOMI, PERRL Pupil Exam: NORMAL ACCOMODATION - ENT Exam ENT Exam: Mucous Membranes Moist, Normal Exam - Neck Exam Neck Exam: Full ROM, Normal Inspection - Respiratory Exam Respiratory Exam: Clear to Ausculation Bilateral, NORMAL BREATHING PATTERN. absent: Rales, Rhonchi, Wheezes - Cardiovascular Exam Cardiovascular Exam: REGULAR RHYTHM, RRR, +S1, +S2. absent: JVD - GI/Abdominal Exam GI & Abdominal Exam: Soft, Normal Bowel Sounds. absent: Distended, Guarding, Tenderness, Rebound - Rectal Exam Rectal Exam: Deferred - Extremities Exam Extremities Exam: Full ROM, Normal Capillary Refill, Normal Inspection. absent : Pedal Edema - Neurological Exam Neurological Exam: Alert, Awake Additional comments: with expressive aphasia, left hemiparesis left hemineglect power 1/5 both to LUE and LLE - Psychiatric Exam Psychiatric exam: Normal Affect - Skin Skin Exam: Dry, Intact, Normal Color, Warm Assessment and Plan - Assessment and Plan (Free Text) Assessment: 71 years old male with hx of HTN, DM II and Prostate Cancer, brought to the ED with left sided weakness. He fell out of bed and could not get up from the floor where he remained for approximately 24 hours until his son found him. The NIHSS was 14. CT head showed acute right basal ganglia hematoma with edema . Patient was admitted in ICU, neurology and neurosurgery were consulted. Repeat Ct head showed stable bleed , tiny new left occipital lobe bleed.He was started on Cardene drip for BP control and at present off cardene drip and BP is better controlled He has expressive aphasia, left hemiparesis with neglect 1.Intracranial Hemorrhage with left hemiplegia Repeat Ct showed Stable acute right basal ganglia hematoma with surrounding edema or ischemic parenchyma. Stable 3 mm midline shift towards the left. Bilateral intraventricular hemorrhage, right greater than left. Tiny new focal hemorrhage left occipital lobe which may be parenchymal or may represent a tiny amount of subarachnoid blood. Avoid any antiplatelet or anticoagulation Patient with expressive aphasia,left hemineglect ,dysphagia and left hemiparesis Neurology and neurosurgery consulted. No surgical intervention indicated at present BP better controlled and off cardene drip. Continue Hydralazine 50 mg po q6 , Enalapril 20 mg po Qd t and norvasc 10 mg QD. Discontinued labetalol due to low BP and bradycardia episode Patient has problems with swallowing. Follow recommendations from swallow eval keep HOB elevated Start Physical therapy/ Occupational Therapy Downgrade to telemetry SW eval for discharge planning to rehab 2. Paraxysmal afib Back in SR on monitor 3. Acute kidney injury Most likely prerenal , unknown prior kidney function Continue IVF BUN/Cr 33/1.9 4. Acute rhabdomyelysis resolved with hydration 5.Hyperglycemia Hgba1c 6.1 Change IVF with NS Continue monitoring accu with Novolog sliding scale 6. Fever unclear source, Tmax 100.6 last 12 hours possible related to intracranial bleed but will need to rule out any other source of infection Sanders catheter removed and UA showed no signs of infection CXR showed no infiltrate 7.Hypertension better controlled at present off Cardene drip Continue hydralazine 50 mg po q6,Enalapril 20 mg Po Qd and Norvasc 10 mg po Qd discontinued Labetalol due to episode of bradycardia and hypotension 8. Dyslipidemia Tg 166 Chol 242 LDL 134 Started Atorvastatin 9.Mild Anemia Most likely dilution 10.Stress ulcer Prophylaxis Pepcid 11. DVT prophylaxis SCD Code Status; Full
--- NOTE | 2016-07-10 08:37 | CT ---
PROCEDURE: CT HEAD WITHOUT CONTRAST. HISTORY: acute unresponsiveness COMPARISON: 07/08/2016 TECHNIQUE: Axial computed tomography images were obtained through the head/brain without intravenous contrast. Radiation dose: Total exam DLP = 162.56 mGy-cm. This CT exam was performed using one or more of the following dose reduction techniques: Automated exposure control, adjustment of the mA and/or kV according to patient size, and/or use of iterative reconstruction technique. FINDINGS: HEMORRHAGE: Intraparenchymal hematoma involving the right posterior lentiform nucleus and thalamus. Hemorrhage extends into the right lateral ventricle anterior horn and the atrium. Small amount of hemorrhage also seen in the left lateral ventricle posterior horn. Previously identified focus of presumed subarachnoid hemorrhage in the left occipital lobe is not clearly identified on the current study. BRAIN: Mass-effect surrounding intraparenchymal hemorrhage in the right is appreciated as evidenced by effacement of the surrounding subarachnoid spaces. There is mild midline shift to the right measuring approximately 4 millimeters. No atrophy appreciated. Mild hypoattenuation of the right temporal lobe noted which could be due to edema. VENTRICLES: No significant hydrocephalus. CALVARIUM: Unremarkable. PARANASAL SINUSES: Unremarkable as visualized. No significant inflammatory changes. MASTOID AIR CELLS: Unremarkable as visualized. No inflammatory changes. OTHER FINDINGS: None. IMPRESSION: Essentially unchanged size and character of intraparenchymal hematoma involving the right posterior lentiform nucleus and thalamus. Hemorrhage also seen at 2 4 within both lateral ventricles right greater than left. No significant change in the size of the ventricles. Other findings as above. Please note that this report is in general agreement with the preliminary report provided by [facility].
[2016-07-10] MEDS: EnalaprilAT 1.25 mg/ml Inj IV PRN (21:09)
[2016-07-11 05:28] LABS: CALCIUM 8.4 mg/dL (8.4-10.2); POTASSIUM 4.3 MMOL/L (3.6-5.0)
[2016-07-11 05:31] LABS: HEMATOCRIT 27.9 % (35.0-51.0); MEAN CELL VOLUME 85.2 fl (80.0-94.0); MEAN CORPUSCULAR HEMOGLOBIN 28.9 pg (27.0-31.0); MEAN CORPUSCULAR HGB CONC 33.9 g/dL (33.0-37.0); RED CELL DISTRIBUTION WIDTH 13.5 % (11.5-14.5); WHITE BLOOD COUNT 6.2 K/uL (4.8-10.8)
[2016-07-11] MEDS: Insulin Regular 100 units/ml SC SCH ×4 (06:59→22:00)
--- NOTE | 2016-07-11 09:35 | RAD ---
HISTORY: Follow-up pneumonia. Portable study 04:35. COMPARISON: July 09, 2016. FINDINGS: LUNGS: Stable lower lobe infiltrates. PLEURA: No significant pleural effusion identified, no pneumothorax apparent. CARDIOVASCULAR: No radiographic findings to suggest acute or significant cardiovascular disease. OSSEOUS STRUCTURES: No significant abnormalities. VISUALIZED UPPER ABDOMEN: Normal. OTHER FINDINGS: None. IMPRESSION: Stable lower lobe infiltrates.
[2016-07-11 10:21] LABS: URINE BILIRUBIN NEGATIVE (NEGATIVE); URINE BLOOD SMALL (NEGATIVE); URINE COLOR YELLOW (YELLOW); URINE GLUCOSE (UA) 50 mg/dL (Normal); URINE KETONE NEGATIVE (NEGATIVE); URINE LEUKOCYTE ESTERASE NEG Leu/uL (Negative); URINE PROTEIN 100 mg/dL (NEGATIVE); URINE UROBILINOGEN 0.2-1.0 mg/dL (0.2-1.0); WBC URINE 3 /hpf (0-5)
--- NOTE | 2016-07-11 11:19 | CP.PCM.PN ---
Subjective - Date & Time of Evaluation Date of Evaluation: 07/11/16 Time of Evaluation: 10:15 - Subjective Subjective: Pt is febrile to 102 awake, alert has sl cough no leukocytosis left hemiparesis denies CP no SOB Objective - Vital Signs/Intake and Output Vital Signs (last 24 hours): Temp Pulse Resp BP Pulse Ox 98.2 F 64 19 160/78 H 94 L 07/11/16 07:44 07/11/16 10:00 07/11/16 10:00 07/11/16 10:00 07/11/16 10:00 Intake and Output: 07/11/16 07/11/16 06:59 18:59 Intake Total 180 120 Balance 180 120 - Medications Medications: Current Medications Acetaminophen (Tylenol 325mg Tab) 650 mg PO Q6 PRN PRN Reason: Pain, Mild (1-3) Last Admin: 07/10/16 17:13 Dose: 650 mg Amlodipine Besylate (Norvasc) 10 mg PO DAILY [facility] Last Admin: 07/11/16 09:28 Dose: 10 mg Atorvastatin Calcium (Lipitor) 20 mg PO DAILY [facility] Last Admin: 07/11/16 09:28 Dose: 20 mg Enalapril Maleate (Vasotec) 20 mg PO DAILY [facility] Last Admin: 07/11/16 09:29 Dose: 20 mg Enalaprilat (Vasotec Iv) 1.25 mg IV Q6 PRN PRN Reason: Systolic Blood Pressure Last Admin: 07/10/16 21:09 Dose: 1.25 mg Famotidine (Pepcid) 40 mg PO HS [facility] Last Admin: 07/10/16 21:12 Dose: 40 mg Hydralazine HCl (Apresoline) 50 mg PO QID [facility] Last Admin: 07/10/16 21:11 Dose: 50 mg Nicardipine HCl 50 mg/ (Dextrose) 250 mls @ 50 mls/hr IV .Q5H [facility]; 10 MG/HR PRN Reason: Protocol Last Titration: 07/09/16 06:41 Dose: 15 mg/hr, 75 mls/hr Piperacillin Sod/Tazobactam (Sod 2.25 gm/ Sodium Chloride) 100 mls @ 100 mls/ hr IVPB Q8 [facility] Insulin Human Regular (Humulin R) 0 units SC ACHS [facility] PRN Reason: Protocol Last Admin: 07/11/16 06:59 Dose: 4 unit Nimodipine (Nimotop) 30 mg PO Q4 [facility]KO - Labs Labs: 07/11/16 04:20 07/11/16 04:20 PT 10.8 SECONDS (9.6-11.2) 07/07/16 00:40 INR 1.04 (0.92-1.08) 07/07/16 00:40 APTT 26.9 SECONDS (23.3-32.5) 07/07/16 00:40 - Constitutional Appears: No Acute Distress, Chronically Ill - Head Exam Head Exam: NORMAL INSPECTION, NORMOCEPHALIC - Eye Exam Eye Exam: EOMI, Normal appearance Pupil Exam: NORMAL ACCOMODATION - ENT Exam ENT Exam: Mucous Membranes Moist, Normal External Ear Exam - Neck Exam Neck Exam: Full ROM. absent: Meningismus - Respiratory Exam Respiratory Exam: Rales (bases), NORMAL BREATHING PATTERN. absent: Wheezes, Respiratory Distress - Cardiovascular Exam Cardiovascular Exam: REGULAR RHYTHM, +S1, +S2 - GI/Abdominal Exam GI & Abdominal Exam: Soft, Normal Bowel Sounds. absent: Tenderness - Extremities Exam Extremities Exam: Normal Capillary Refill. absent: Calf Tenderness, Pedal Edema - Back Exam Back Exam: absent: CVA tenderness (L), CVA tenderness (R) - Neurological Exam Neurological Exam: Alert, Awake Neuro motor strength exam: Left Upper Extremity: 0, Right Upper Extremity: 5, Left Lower Extremity: 0, Right Lower Extremity: 5 Additional comments: oriented to person - Psychiatric Exam Psychiatric exam: Normal Affect, Normal Mood - Skin Skin Exam: Dry, Normal Color, Warm Assessment and Plan - Assessment and Plan (Free Text) Assessment: 71 years old male with hx of HTN, DM II and Prostate Cancer, brought to the ED with left sided weakness. He fell out of bed and could not get up from the floor where he remained for approximately 24 hours until his son found him. The NIHSS was 14. CT head showed acute right basal ganglia hematoma with edema . Patient was admitted in ICU, neurology and neurosurgery were consulted. Repeat Ct head showed stable bleed , tiny new left occipital lobe bleed. He was started on Cardene drip for BP control and at present off cardene drip. He has left sided weakness. 1.Intracranial Hemorrhage with left hemiplegia Repeat Ct showed Stable acute right basal ganglia hematoma with surrounding edema or ischemic parenchyma. Stable 3 mm midline shift towards the left. Bilateral intraventricular hemorrhage, right greater than left. Tiny new focal hemorrhage left occipital lobe which may be parenchymal or may represent a tiny amount of subarachnoid blood. Avoid any antiplatelet or anticoagulation Patient with dysarthria, left hemineglect ,dysphagia and left hemiparesis Neurology and neurosurgery consulted. No surgical intervention indicated at present Off cardene drip. Continue Hydralazine 50 mg po q6 , Enalapril 20 mg po Qd t and norvasc 10 mg QD. Discontinued labetalol due to low BP and bradycardia episode. Add Clonidine 0.1 mg bid Patient has problems with swallowing. Follow recommendations from swallow eval keep HOB elevated Start Physical therapy/ Occupational Therapy Downgrade to telemetry SW eval for discharge planning to Acute Rehab 2. Paroxysmal afib Back in SR on monitor no Anticoagulation due to ICH 3. Acute kidney injury Most likely prerenal , unknown prior kidney function Continue IVF Crea 2.0 4. Acute rhabdomyolysis resolved with hydration 5.Hyperglycemia Hgba1c 6.1 Continue monitoring accu with Novolog sliding scale 6. Fever may be central r/o Aspiration PNA Pt is febrile , no leukocytosis, Urine c/s: neg Blood c/s; Neg so far possible related to intracranial bleed but will need to rule out any other source of infection Sanders catheter removed and UA showed no signs of infection CXR showed lower lobe infiltrate 7.Hypertension , uncontrolled off Cardene drip Continue hydralazine 50 mg po q6,Enalapril 20 mg Po Qd and Norvasc 10 mg po Qd add Clonidine discontinued Labetalol due to episode of bradycardia and hypotension 8. Dyslipidemia Tg 166 Chol 242 LDL 134 Started Atorvastatin 9.Mild Anemia Most likely dilutional 10.Stress ulcer Prophylaxis Pepcid 11. DVT prophylaxis SCD Code Status; Full Surrogate decision maker - son Jose F
[2016-07-11] MEDS ORDERED: Sodium Chloride 3% for Inhalation 4 ML VIAL.NEB IH PRN (15:49)
--- NOTE | 2016-07-11 17:01 | PN ---
DATE: 07/11/2016 LOCATION: The patient is in ICU, bed 435. TIME SPENT: 35 minutes. The patient is seen and evaluated at the bedside. PAST MEDICAL, SURGICAL AND SOCIAL HISTORY: Reviewed. Events since admission noted a 71-year-old male with hypertension, type 2 diabetes mellitus, CA prost ate, admitted through Emergency Room with left-sided weakness, status post fall out of bed. CT head showed intracerebral hemorrhage with edema. Seen by neurology and neurosurgery consult. Repeat CT h ead showed a stable bleed with a tiny new left occipital lobe bleed. The blood pressure was maintain ed between 140-160. The patient remains alert, awake, but confused. Knows the name and place that h e is in. Denies headache, shortness of breath, chest pain, palpitations. No abdominal discomfort. Status post swallow evaluation. Recommend a pureed diet with nectar thick liquids, tolerating it wel l with occasional signs of aspiration with cough and gurgling in the throat. PHYSICAL EXAMINATION: VITAL SIGNS: Temperature 102.3, heart rate 72 regular, blood pressure is 163-180/68-84, respiratory rate 15, thoracoabdominal, saturating 97% on room air. Intake 780 mL, output 750, positive balance 3 0 mL. Weight 150 pounds. HEENT: Pupils reactive. Conjunctivae pink. Sclerae are white. Extraocular muscles intact. Mucous membrane moist. NECK: Supple. CHEST: Bilateral breath sounds, fine crackles heard at the bases. HEART: Rhythm regular. S1, S2 normal intensity. ABDOMEN: Bowel sounds present, soft. EXTREMITIES: Normal capillary refill. No palpable cord. BACK: No tenderness. NEUROLOGIC: As noted, alert, awake, oriented x 2, flaccid left upper and lower extremities. Right u pper and lower extremities with strength plantar flexor on the right. LABORATORY DATA: WBC 6.2, hemoglobin 9.5, hematocrit 27.9, platelet count 181. PT 10.8, INR 1.04, P TT 26.9. SMA-7: Sodium 136, potassium 4.3, chloride 110, CO2 20, blood urea nitrogen 32, creatinine 2, estimated GFR 33. Random glucose 252, calcium 8.4. Urinalysis: Microscopic WBC 3 with 1, leuk esterase negative. Chest x-ray done this morning shows stable lower lobe infiltrate. CT head done on 07/09, intraparenchymal hematoma involving the right posterior lentiform nucleus and thalamus. Hemorrhage extents into the right lateral ventricle anterior horn and the atrium, small amount of he morrhage also seen in the left lateral ventricle posterior horn. IMPRESSION: 1. Intracerebral hemorrhage with left hemiplegia. Repeat CT shows stable hematoma with surrounding edema or ischemic parenchyma, stable at 3 mm midline shift towards the left. 2. Paroxysmal atrial fibrillation, now back in sinus rhythm. No anticoagulation due to ICH, closely monitor rate and rhythm. 3. Status post rhabdomyolysis, resolved with hydration. 4. Hyperglycemia, hemoglobin A1c 6.1. Maintain blood sugar less than 180. 5. Fever with a normal white count. Chest x-ray with lower lobe infiltrates, suspect aspiration, on Zosyn q. 6 hours. Closely follow the infiltrate. 6. Hypertension, controlled. Maintain blood pressure 140-160. Hydralazine 50 mg q. 6, enalapril 20 mg once daily, Norvasc 10 mg daily. Add labetalol. If blood pressure remains above 160, consider a dding clonidine. 7. Hyperlipidemia, mild anemia, stable. 8. Deep vein thrombosis prophylaxis. Aspiration precautions. Status post swallow evaluation. [place] mmend to continue temporarily with nectar thick Pureed diet. Schedule for modified barium swallow ev aluation. Apolinar Maguire MD cc: 170 TT: 07/11/2016 17:00:17 Confirmation # [id number] Dictation # [id number] obi
[2016-07-11] MEDS ORDERED: Insulin Detemir 100 Units/ml Inj SC SCH (22:00)
[2016-07-12 05:43] LABS: HEMATOCRIT 31.4 % (35.0-51.0); MEAN CELL VOLUME 84.7 fl (80.0-94.0); MEAN CORPUSCULAR HEMOGLOBIN 28.8 pg (27.0-31.0); MEAN CORPUSCULAR HGB CONC 33.9 g/dL (33.0-37.0); RED CELL DISTRIBUTION WIDTH 13.7 % (11.5-14.5)
[2016-07-12 06:01] LABS: CALCIUM 8.9 mg/dL (8.4-10.2); POTASSIUM 4.2 MMOL/L (3.6-5.0)
[2016-07-12] MEDS: Insulin Regular 100 units/ml SC SCH ×4 (06:59→21:33)
--- NOTE | 2016-07-12 09:52 | CP.PCM.PN ---
Subjective - Date & Time of Evaluation Date of Evaluation: 07/12/16 Time of Evaluation: 08:30 - Subjective Subjective: had low grade fever 100.2 last night ( [place]), no fever so far Speech will re-eval pt today and see if there is a need for Video swallow eval Pt denies pain tolerated PO intake at breakfast occ cough Objective - Vital Signs/Intake and Output Vital Signs (last 24 hours): Temp Pulse Resp BP Pulse Ox 99.7 F H 79 20 169/78 H 97 07/12/16 08:00 07/12/16 09:32 07/12/16 08:00 07/12/16 09:32 07/12/16 08:00 Intake and Output: 07/12/16 07/12/16 06:59 18:59 Intake Total 190 Output Total 300 Balance -110 - Medications Medications: Current Medications Acetaminophen (Tylenol 325mg Tab) 650 mg PO Q6 PRN PRN Reason: Pain, Mild (1-3) Last Admin: 07/11/16 13:48 Dose: 650 mg Amlodipine Besylate (Norvasc) 10 mg PO DAILY [facility] Last Admin: 07/11/16 09:28 Dose: 10 mg Atorvastatin Calcium (Lipitor) 20 mg PO DAILY [facility] Last Admin: 07/12/16 09:32 Dose: 20 mg Clonidine HCl (Catapres) 0.1 mg PO BID [facility] Last Admin: 07/12/16 09:32 Dose: 0.1 mg Enalapril Maleate (Vasotec) 20 mg PO DAILY [facility] Last Admin: 07/11/16 09:29 Dose: 20 mg Enalaprilat (Vasotec Iv) 1.25 mg IV Q6 PRN PRN Reason: Systolic Blood Pressure Last Admin: 07/10/16 21:09 Dose: 1.25 mg Famotidine (Pepcid) 40 mg PO HS [facility] Last Admin: 07/11/16 23:00 Dose: 40 mg Glipizide (Glucotrol) 5 mg PO ACB [facility] Hydralazine HCl (Apresoline) 50 mg PO QID [facility] Last Admin: 07/12/16 09:31 Dose: 50 mg Nicardipine HCl 50 mg/ (Dextrose) 250 mls @ 50 mls/hr IV .Q5H PAKO; 10 MG/HR PRN Reason: Protocol Last Titration: 07/09/16 06:41 Dose: 15 mg/hr, 75 mls/hr Piperacillin Sod/Tazobactam (Sod 2.25 gm/ Sodium Chloride) 100 mls @ 100 mls/ hr IVPB Q8 [facility] Last Admin: 07/12/16 01:00 Dose: 100 mls/hr Insulin Detemir (Levemir) 6 units SC HS [facility] Last Admin: 07/11/16 22:00 Dose: 6 u Insulin Human Regular (Humulin R) 0 units SC ACHS [facility] PRN Reason: Protocol Last Admin: 07/12/16 06:59 Dose: 3 unit - Labs Labs: 07/12/16 04:20 07/12/16 04:20 PT 10.8 SECONDS (9.6-11.2) 07/07/16 00:40 INR 1.04 (0.92-1.08) 07/07/16 00:40 APTT 26.9 SECONDS (23.3-32.5) 07/07/16 00:40 - Constitutional Appears: No Acute Distress, Chronically Ill - Head Exam Head Exam: NORMAL INSPECTION, NORMOCEPHALIC - Eye Exam Eye Exam: EOMI, Normal appearance Pupil Exam: NORMAL ACCOMMODATION - ENT Exam ENT Exam: Mucous Membranes Moist, Normal External Ear Exam - Neck Exam Neck Exam: Full ROM. absent: Meningismus - Respiratory Exam Respiratory Exam: Rales (bases), NORMAL BREATHING PATTERN. absent: Wheezes, Respiratory Distress - Cardiovascular Exam Cardiovascular Exam: REGULAR RHYTHM, +S1, +S2 - GI/Abdominal Exam GI & Abdominal Exam: Soft, Normal Bowel Sounds. absent: Tenderness - Extremities Exam Extremities Exam: Normal Capillary Refill. absent: Calf Tenderness, Pedal Edema - Back Exam Back Exam: absent: CVA tenderness (L), CVA tenderness (R) - Neurological Exam Neurological Exam: Alert, Awake Neuro motor strength exam: Left Upper Extremity: 0, Right Upper Extremity: 5, Left Lower Extremity: 0, Right Lower Extremity: 5 Additional comments: oriented to person and place dysarthric , minimal verbal output , follows simple commands - Psychiatric Exam Psychiatric exam: Normal Affect, Normal Mood - Skin Skin Exam: Dry, Normal Color, Warm Assessment and Plan - Assessment and Plan (Free Text) Assessment: 71 years old male with hx of HTN, DM II and Prostate Cancer, brought to the ED with left sided weakness. He fell out of bed and could not get up from the floor where he remained for approximately 24 hours until his son found him. The NIHSS was 14. CT head showed acute right basal ganglia hematoma with edema . Patient was admitted in ICU, neurology and neurosurgery were consulted. Repeat Ct head showed stable bleed , tiny new left occipital lobe bleed. He was started on Cardene drip for BP control , at present off Cardene drip. He has left sided weakness. Noted fever - found to have basilar infiltrates on CXR and started on IV Zosyn 1.Intracranial Hemorrhage with left hemiplegia Repeat Ct showed Stable acute right basal ganglia hematoma with surrounding edema or ischemic parenchyma. Stable 3 mm midline shift towards the left. Bilateral intraventricular hemorrhage, right greater than left. Tiny new focal hemorrhage left occipital lobe which may be parenchymal or may represent a tiny amount of subarachnoid blood. Avoid any antiplatelet or anticoagulation Patient with dysarthria, left hemineglect ,dysphagia and left hemiparesis Neurology and neurosurgery consulted. No surgical intervention indicated at present Off cardene drip. Continue Hydralazine 50 mg po q6 , Enalapril 20 mg po Q and norvasc 10 mg QD. Discontinued labetalol due to bradycardia episode. Added Clonidine 0.1 mg bid Patient has problems with swallowing. Follow recommendations from swallow eval- poss Video swallow eval keep HOB elevated Physical therapy/ Occupational Therapy Downgrade to telemetry eval for discharge planning to Acute Rehab 2. Paroxysmal A Fib Back in SR on monitor no Anticoagulation due to ICH 3. Acute kidney injury Most likely prerenal , unknown prior kidney function Continue IVF Crea 2.0 4. Acute rhabdomyolysis resolved with hydration 5.Hyperglycemia Hgba1c 6.1 Continue monitoring accu with Novolog sliding scale 6. Pneumonia poss Aspiration PNA Pt is febrile , no leukocytosis, Urine c/s: neg Blood c/s; Neg so far CXR showed lower lobe infiltrate empirically started on IV Zosyn 7.Hypertension , uncontrolled off Cardene drip Continue hydralazine 50 mg po q6,Enalapril 20 mg Po Qd and Norvasc 10 mg po Qd added Clonidine discontinued Labetalol due to episode of bradycardia 8. Dyslipidemia Tg 166 Chol 242 LDL 134 Started Atorvastatin 9.Mild Anemia Most likely dilutional 10.Stress ulcer Prophylaxis Pepcid 11. DVT prophylaxis SCD
--- NOTE | 2016-07-12 14:31 | PN ---
DATE: 07/12/2016 LOCATION: The patient in ICU, bed 435. TIME SPENT: 35 minutes. The patient is seen and examined at the bedside. Events since admission reviewed. Overnight, T-max 102.3, currently defervesced, regular, blood pressure 113-163/63-77. Telemetry, sinus rhythm. PHYSICAL EXAMINATION: HEENT: Pupils are reactive. No nystagmus. Conjunctivae pink. Sclerae are anicteric. Extraocular muscles intact. Mucous membrane moist. NECK: Supple. CHEST: Bilateral breath sounds. Fine crepitations at the bases. HEART: Rhythm regular. S1, S2 normal intensity. ABDOMEN: Bowel sounds present, soft. EXTREMITIES: No clubbing, cyanosis, or edema. NEUROLOGIC: Alert, awake, oriented to name and place, but not to time. Flaccid left upper and lower extremities, right upper and lower extremities with strength 5/5, plantar flexor on the right. CURRENT MEDICATIONS: Include enalapril 1.25 mg IV q. 6 p.r.n. for systolic pressure over 160, Pepcid 40 mg p.o. at night, glipizide 10 mg p.o. twice daily, hydralazine 50 mg p.o. q.i.d., Levemir 6 unit s subQ at bedtime, regular insulin a.c. and at bedtime, Zosyn 2.25 grams IV q. 8 hours, Flomax 0.4 mg daily. IMPRESSION: 1. Intracerebral hemorrhage with left hemiplegia. Repeat CT shows stable hematoma, surrounding jacob a or ischemic parenchyma, stable 3 mm midline shift to his left. 2. Paroxysmal atrial fibrillation, now in sinus rhythm. Anticoagulation on hold secondary to intrac erebral hematoma. 3. Status post rhabdomyolysis, resolved with hydration. 4. Hyperglycemia, hemoglobin A1c 6. Maintain blood sugar less than 180. Increase the Levemir to 10 units subcutaneously at night. Noted fever yesterday, on antibiotics for possible aspiration pneumo maura we empirically. Today has defervesced; however, we will continue antibiotics until fever subside s for 48 hours. 5. Hypertension, controlled. maintained 140-160. Continue hydralazine 50 mg q. 6, enalapril 20 mg d aily, Norvasc 10 mg daily, clonidine 0.1 mg twice daily. 6 . Hyperlipidemia. 7. Mild anemia, stable. 8. Deep venous thrombosis prophylaxis with sequential compression device. 9. Aspiration precautions status post swallowing evaluation. Recommended continue with nectar thick pureed diet, tolerating it well. No signs or symptoms of aspiration noted. Apolinar Maguire MD cc: 170 TT: 07/12/2016 14:31:17 Confirmation # [id number] Dictation # [id number] dn
[2016-07-12] MEDS: Insulin Detemir 100 Units/ml Inj SC SCH (21:31)
[2016-07-12] MEDS ORDERED: Insulin Detemir 100 Units/ml Inj SC SCH (22:00)
[2016-07-12] MEDS: EnalaprilAT 1.25 mg/ml Inj IV PRN (23:42)
[2016-07-13] MEDS ORDERED: Labetalol 5mg/ml (4ml) IVP STA (02:28)
[2016-07-13 05:18] LABS: HEMATOCRIT 30.7 % (35.0-51.0); MEAN CELL VOLUME 85.4 fl (80.0-94.0); MEAN CORPUSCULAR HEMOGLOBIN 28.9 pg (27.0-31.0); MEAN CORPUSCULAR HGB CONC 33.9 g/dL (33.0-37.0); WHITE BLOOD COUNT 8.2 K/uL (4.8-10.8)
[2016-07-13 05:21] LABS: CALCIUM 8.6 mg/dL (8.4-10.2); POTASSIUM 4.1 MMOL/L (3.6-5.0)
[2016-07-13] MEDS: Insulin Regular 100 units/ml SC SCH ×4 (07:30→22:06)
--- NOTE | 2016-07-13 08:16 | CP.PCM.PN ---
Subjective - Date & Time of Evaluation Date of Evaluation: 07/13/16 Time of Evaluation: 08:15 - Subjective Subjective: Patient seen and evaluated bedside.Lying in bed in NAD. Still with left side hemiparesis and hemineglect. Speech improved. BP not controlled,with overnight readings SBP ranging 166-179 DBP 75-89 HR 75 Tmax 102.1 Accuchecks elevated [phone] No acute i ssues overnight For video swallow today Objective - Vital Signs/Intake and Output Vital Signs (last 24 hours): Temp Pulse Resp BP Pulse Ox 99 F 63 19 166/89 H 99 07/13/16 07:56 07/13/16 07:56 07/13/16 07:56 07/13/16 07:56 07/13/16 07:56 - Medications Medications: Current Medications Acetaminophen (Tylenol 325mg Tab) 650 mg PO Q6 PRN PRN Reason: Pain, Mild (1-3) Last Admin: 07/12/16 17:15 Dose: 650 mg Acetaminophen (Tylenol 325mg Tab) 650 mg PO Q6 PRN PRN Reason: Fever >100.4 F Last Admin: 07/12/16 23:45 Dose: 650 mg Amlodipine Besylate (Norvasc) 10 mg PO DAILY [facility] Last Admin: 07/12/16 11:05 Dose: 10 mg Atorvastatin Calcium (Lipitor) 20 mg PO DAILY [facility] Last Admin: 07/12/16 09:32 Dose: 20 mg Clonidine HCl (Catapres) 0.2 mg PO BID [facility] Enalapril Maleate (Vasotec) 20 mg PO DAILY [facility] Last Admin: 07/12/16 11:05 Dose: 20 mg Enalaprilat (Vasotec Iv) 1.25 mg IV Q6 PRN PRN Reason: Systolic Blood Pressure Last Admin: 07/12/16 23:42 Dose: 1.25 mg Famotidine (Pepcid) 40 mg PO HS [facility] Last Admin: 07/12/16 21:31 Dose: 40 mg Glipizide (Glucotrol) 10 mg PO BID [facility] Last Admin: 07/12/16 17:18 Dose: 10 mg Hydralazine HCl (Apresoline) 50 mg PO QID [facility] Last Admin: 07/12/16 21:30 Dose: 50 mg Piperacillin Sod/Tazobactam (Sod 2.25 gm/ Sodium Chloride) 100 mls @ 100 mls/ hr IVPB Q8@0500,1300,2100 [facility] Last Admin: 07/13/16 04:38 Dose: 100 mls/hr Insulin Detemir (Levemir) 14 units SC HS [facility] Last Admin: 07/12/16 21:31 Dose: 14 u Insulin Human Regular (Humulin R) 0 units SC ACHS [facility] PRN Reason: Protocol Last Admin: 07/12/16 21:33 Dose: 2 unit Tamsulosin HCl (Flomax) 0.4 mg PO DAILY [facility] - Labs Labs: 07/13/16 04:10 07/13/16 04:10 PT 10.8 SECONDS (9.6-11.2) 07/07/16 00:40 INR 1.04 (0.92-1.08) 07/07/16 00:40 APTT 26.9 SECONDS (23.3-32.5) 07/07/16 00:40 - Constitutional Appears: Non-toxic, No Acute Distress - Head Exam Head Exam: ATRAUMATIC, NORMOCEPHALIC - Eye Exam Eye Exam: EOMI, Normal appearance, PERRL Pupil Exam: NORMAL ACCOMODATION - ENT Exam ENT Exam: Mucous Membranes Moist, Normal Exam - Neck Exam Neck Exam: Normal Inspection - Respiratory Exam Respiratory Exam: Decreased Breath Sounds (bibasilar), Clear to Ausculation Bilateral. absent: Accessory Muscle Use, Prolonged Expiratory Phase, Rhonchi, Wheezes, Respiratory Distress - Cardiovascular Exam Cardiovascular Exam: REGULAR RHYTHM, RRR, +S1, +S2. absent: JVD - GI/Abdominal Exam GI & Abdominal Exam: Soft, Normal Bowel Sounds. absent: Distended, Guarding, Tenderness, Rebound - Rectal Exam Rectal Exam: Deferred - Extremities Exam Extremities Exam: Full ROM, Normal Capillary Refill, Normal Inspection. absent : Pedal Edema - Back Exam Back Exam: NORMAL INSPECTION - Neurological Exam Neurological Exam: Alert, Awake Additional comments: some expressive aphasia but much improved power LLE 1/5 LUE 1/5 left hemineglect - Psychiatric Exam Psychiatric exam: Normal Affect - Skin Skin Exam: Dry, Intact, Normal Color, Warm Assessment and Plan - Assessment and Plan (Free Text) Assessment: 71 years old male with hx of HTN, DM II and Prostate Cancer, brought to the ED with left sided weakness. He fell out of bed and could not get up from the floor where he remained for approximately 24 hours until his son found him. The NIHSS was 14. CT head showed acute right basal ganglia hematoma with edema . Patient was admitted in ICU, neurology and neurosurgery were consulted. Repeat Ct head showed stable bleed , tiny new left occipital lobe bleed. He was started on Cardene drip for BP control , at present off Cardene drip. He has left sided weakness and hemineglect At present BP and accuchecks not well controlled overnight. Tmax 102 last 12 hours For video swallow today 1.Intracranial Hemorrhage with left hemiplegia Repeat Ct showed Stable acute right basal ganglia hematoma with surrounding edema or ischemic parenchyma. Stable 3 mm midline shift towards the left. Bilateral intraventricular hemorrhage, right greater than left. Tiny new focal hemorrhage left occipital lobe which may be parenchymal or may represent a tiny amount of subarachnoid blood. Avoid any antiplatelet or anticoagulation Patient with dysarthria, left hemineglect ,dysphagia and left hemiparesis Neurology and neurosurgery consulted. No surgical intervention indicated at present Off cardene drip. Continue Hydralazine 50 mg po q6 , Enalapril 20 mg po Q and norvasc 10 mg QD. Discontinued labetalol due to bradycardia episode. Added Clonidine 0.1 mg bid ( 07/12/16) Patient has problems with swallowing. For video swallow today keep HOB elevated Continue Physical therapy/ Occupational Therapy For discharge to [facility] when medically stable 2. Paroxysmal A Fib Back in SR on monitor no Anticoagulation due to ICH 3. Acute kidney injury Most likely prerenal , unknown prior kidney function Crea 2.0 4. Acute rhabdomyolysis resolved with hydration 5.Hyperglycemia/ DM Hgba1c 6.1 Continue monitoring accu with Novolog sliding scale Started Glipizide 10 mg PO bID and Levemir 14 units Sq HS ( 07/12/16 ) 6. Pneumonia poss Aspiration PNA Pt is febrile Tmax 102 , no leukocytosis, Urine c/s: neg Blood c/s; Neg so far CXR showed lower lobe infiltrate started on IV Zosyn 7.Hypertension , uncontrolled off Cardene drip Continue hydralazine 50 mg po q6,Enalapril 20 mg Po Qd and Norvasc 10 mg po Qd added Clonidine discontinued Labetalol due to episode of bradycardia 8. Dyslipidemia Tg 166 Chol 242 LDL 134 Started Atorvastatin 9.Mild Anemia Most likely dilutional 10.Stress ulcer Prophylaxis Pepcid 11. DVT prophylaxis SCD 12. BPH started Flomax
--- NOTE | 2016-07-13 12:59 | CP.CCUPN ---
CCU Subjective - Physician Review Subjective (Free Text): CROZER PROGRESS NOTE Patient examined, interim events reviewed: Presently awake and alert, no new complaints; responding appropriately, left hemiparesis persists, SBP levels have been elevated to as high as 170s and given a PO dose of Clonidine overnight. No overt distress noted. Afebrile now, had Temp spike to 102.1 F overnight, SBPs remain in 170-180's, HR at 60's, RR 18-20, 99% on RA ROS: as above, no other pertinent negs or positives on 10 system review. PMFSH: All nursing and historical notes reviewed, no new pertinent data relevant to current problems. No other distress noted: EXAM- HEENT: no icterus, pupils equal and reactive NECK: no visible JVD, supple, carotids equal upstroke bilat/no bruits CHEST: decreased BS bases, no wheezes HEART: regular, distant, S1S2, no murmur audible, no rubs. ABD: soft, no increased distention, no focal tenderness, no HSM. BS hypoactive EXT: no edema, no cords or calf tenderness, no peripheral cyanosis. Distal Pulses intact bilat. NEURO: left hemiparesis SKIN: no rashes LABS: WBC= 8.2 HGB= 10.4 PLTs= 218K Coags Normal Na= 141 K= 4.1 CL= 106 HCO3= 23 BUN/Cr= 37/2.1 BS= 262 MAJOR PROBLEMS NOW: 1. CVA 2 Hypertensive ICH 2. New Onset / Parosymal A fib 3. s/p Fall at home 4. Azotemia, 2 renal autoregulation with control of HTN, Rhabdo resolved. 5. DM II PLAN: 1. Hold further doses of Clonidine- can cause bradycardia 2. Hydrazine increased to 100mg TID. 3. If needed, could increase ACEi further to 40mg QD, but any further increase in Cr may preclude this. 4. Etiology of fevers still unclear, on empiric Zosyn, ?? central etiology?? 5. Maintain normoglycemia. 6. Speech/ PT/OT / Rehab
[2016-07-13] MEDS ORDERED: Barium Sulfate Susp 0.1% w/v, 0.1% w/w 450 mL Bottle PO ONE (13:50)
--- NOTE | 2016-07-13 16:33 | RAD ---
PROCEDURE: Modified barium swallow HISTORY: dysphagia s/p CVA COMPARISON: None TECHNIQUE: Total fluoroscopic time (continuous mode) utilized during the procedure: 1100.1 seconds. FINDINGS: Trace penetration was noted with thin liquids. No evidence of aspiration. Otherwise unremarkable study. IMPRESSION: Intermittent, trace penetration without documented aspiration.
[2016-07-13] MEDS: Insulin Detemir 100 Units/ml Inj SC SCH (22:06)
[2016-07-14] MEDS ORDERED: Insulin Detemir 100 Units/ml Inj SC SCH (07:24)
--- NOTE | 2016-07-14 07:26 | CP.PCM.PN ---
Subjective - Date & Time of Evaluation Date of Evaluation: 07/12/16 Time of Evaluation: 09:00 - Subjective Subjective: Patient eeen and examined bedside. Appears comfortable in NAD. BP uncontrolled 183/74 HR 79 RR 16 saturating 98 % on 2 L O2 via NC Tmax 100.8 last 12 hours Accuchecks not well controlled 370-- 411-260 Still with dysarthria, left hemiparesis and hemineglect Objective - Vital Signs/Intake and Output Vital Signs (last 24 hours): Temp Pulse Resp BP Pulse Ox 100.8 F H 69 21 158/69 H 100 07/14/16 04:49 07/14/16 06:00 07/14/16 06:00 07/14/16 06:00 07/14/16 06:00 - Medications Medications: Current Medications Acetaminophen (Tylenol 325mg Tab) 650 mg PO Q6 PRN PRN Reason: Pain, Mild (1-3) Last Admin: 07/13/16 11:59 Dose: 650 mg Acetaminophen (Tylenol 325mg Tab) 650 mg PO Q6 PRN PRN Reason: Fever >100.4 F Last Admin: 07/14/16 04:49 Dose: 650 mg Amlodipine Besylate (Norvasc) 10 mg PO DAILY [facility] Last Admin: 07/13/16 10:25 Dose: 10 mg Atorvastatin Calcium (Lipitor) 20 mg PO DAILY [facility] Last Admin: 07/13/16 10:23 Dose: 20 mg Enalapril Maleate (Vasotec) 20 mg PO DAILY [facility] Last Admin: 07/13/16 11:56 Dose: 20 mg Enalaprilat (Vasotec Iv) 1.25 mg IV Q6 PRN PRN Reason: Systolic Blood Pressure Last Admin: 07/12/16 23:42 Dose: 1.25 mg Famotidine (Pepcid) 40 mg PO HS [facility] Last Admin: 07/13/16 22:10 Dose: 40 mg Glipizide (Glucotrol) 10 mg PO BID [facility] Last Admin: 07/13/16 17:18 Dose: 10 mg Hydralazine HCl (Apresoline) 100 mg PO TID [facility] Last Admin: 07/13/16 17:17 Dose: 100 mg Piperacillin Sod/Tazobactam (Sod 2.25 gm/ Sodium Chloride) 100 mls @ 100 mls/ hr IVPB Q8@0500,1300,2100 [facility] Last Admin: 07/14/16 04:49 Dose: 100 mls/hr Insulin Detemir (Levemir) 20 units SC HS [facility] Insulin Human Regular (Humulin R) 0 units SC ACHS [facility] PRN Reason: Protocol Last Admin: 07/13/16 22:06 Dose: 4 unit Minoxidil (Minoxidil) 10 mg PO DAILY [facility] Tamsulosin HCl (Flomax) 0.4 mg PO DAILY [facility] Last Admin: 07/13/16 10:22 Dose: 0.4 mg - Labs Labs: 07/13/16 04:10 07/13/16 04:10 PT 10.8 SECONDS (9.6-11.2) 07/07/16 00:40 INR 1.04 (0.92-1.08) 07/07/16 00:40 APTT 26.9 SECONDS (23.3-32.5) 07/07/16 00:40 - Constitutional Appears: Non-toxic, No Acute Distress - Head Exam Head Exam: ATRAUMATIC, NORMAL INSPECTION, NORMOCEPHALIC - Eye Exam Eye Exam: EOMI, Normal appearance, PERRL Pupil Exam: NORMAL ACCOMODATION - ENT Exam ENT Exam: Mucous Membranes Moist, Normal Exam - Neck Exam Neck Exam: Full ROM, Normal Inspection - Respiratory Exam Respiratory Exam: Clear to Ausculation Bilateral, NORMAL BREATHING PATTERN. absent: Rhonchi, Wheezes, Respiratory Distress - Cardiovascular Exam Cardiovascular Exam: REGULAR RHYTHM, RRR, +S1, +S2. absent: JVD - GI/Abdominal Exam GI & Abdominal Exam: Soft, Normal Bowel Sounds. absent: Distended, Guarding, Tenderness, Rebound - Rectal Exam Rectal Exam: Deferred - Extremities Exam Extremities Exam: Full ROM, Normal Capillary Refill, Normal Inspection. absent : Calf Tenderness, Pedal Edema - Back Exam Back Exam: NORMAL INSPECTION - Neurological Exam Neurological Exam: Alert, Awake Additional comments: left facial droop Left hemiparesis with hemineglect dysarthria - Psychiatric Exam Psychiatric exam: Normal Affect, Normal Mood - Skin Skin Exam: Dry, Intact, Normal Color, Warm Assessment and Plan - Assessment and Plan (Free Text) Assessment: 71 years old male with hx of HTN, DM II and Prostate Cancer, brought to the ED with left sided weakness. He fell out of bed and could not get up from the floor where he remained for approximately 24 hours until his son found him. The NIHSS was 14. CT head showed acute right basal ganglia hematoma with edema . Patient was admitted in ICU, neurology and neurosurgery were consulted. Repeat Ct head showed stable bleed , tiny new left occipital lobe bleed. He was started on Cardene drip for BP control , at present off Cardene drip. He has left sided weakness and hemineglect At present BP and accuchecks not well controlled .Still febrile Tmax 100.8 last 12 hours 1.Intracranial Hemorrhage with left hemiplegia Repeat Ct showed Stable acute right basal ganglia hematoma with surrounding edema or ischemic parenchyma. Stable 3 mm midline shift towards the left. Bilateral intraventricular hemorrhage, right greater than left. Tiny new focal hemorrhage left occipital lobe which may be parenchymal or may represent a tiny amount of subarachnoid blood. Avoid any antiplatelet or anticoagulation Patient with dysarthria, left hemineglect ,dysphagia and left hemiparesis Neurology and neurosurgery consulted. No surgical intervention indicated at present BP uncontrolled .Off cardene drip.Increased Hydralazine 100 mg po TID , continue Enalapril 20 mg po QD and norvasc 10 mg Started Minoxidil today and stopped Clonidine Discontinued labetalol due to bradycardia episode. Patient has problems with swallowing. Video swallow showed no aspiration only intermittent penetration with liquids keep HOB elevated Continue Physical therapy/ Occupational Therapy For discharge to [facility] when medically stable 2. Paroxysmal A Fib Back in SR on monitor no Anticoagulation due to ICH 3. Acute kidney injury Most likely prerenal , unknown prior kidney function Crea 2.0 4. Acute rhabdomyolysis resolved with hydration 5.Hyperglycemia/ DM Hgba1c 6.1 Continue monitoring accu with Novolog sliding scale on Glipizide 10 mg PO bID Increase Levemir from 14 units to 20 units Sq HS 6. Pneumonia poss Aspiration PNA Pt is febrile Tmax 100.8 last 12 hours , no leukocytosis, Urine c/s: neg Blood c/s; Neg so far CXR showed lower lobe infiltrate on IV Zosyn 7.Hypertension , uncontrolled off Cardene drip Increased hydralazine to 100 mg po TID Continue Enalapril 20 mg Po Qd and Norvasc 10 mg po Qd D/c clonidine Started Minoxidil 5 mg po QD discontinued Labetalol due to episode of bradycardia 8. Dyslipidemia Tg 166 Chol 242 LDL 134 Started Atorvastatin 9.Mild Anemia Most likely dilutional 10.Stress ulcer Prophylaxis Pepcid 11. DVT prophylaxis SCD 12. BPH started Flomax
--- NOTE | 2016-07-14 07:32 | CP.CCUPN ---
CCU Subjective - Physician Review Subjective (Free Text): [employer] PROGRESS NOTE Patient examined, interim events reviewed: Presently awake and alert, no new complaints; responding appropriately, but confused at times, taking off nasal cannula; left hemiparesis persists, SBP levels still elevated to as high 170s, HR has been better with no prolonged or seevre bradycardia with HR in 40's as previously. No overt distress noted. Temps persistently to 100.8 F since last evening and overnight, RR 18-20, 99% on RA. I/O's noted, ??incomplete. ROS: as above, no other pertinent negs or positives on 10 system review. PMFSH: All nursing and historical notes reviewed, no new pertinent data relevant to current problems. No other distress noted: EXAM- HEENT: no icterus, pupils equal and reactive NECK: no visible JVD, supple, carotids equal upstroke bilat/no bruits CHEST: decreased BS bases, no wheezes HEART: regular, distant, S1S2, no murmur audible, no rubs. ABD: soft, no increased distention, no focal tenderness, no HSM. BS hypoactive EXT: no edema, no cords or calf tenderness, no peripheral cyanosis. Distal Pulses intact bilat. NEURO: left hemiparesis SKIN: no rashes LABS: yesterday- WBC= 8.2 HGB= 10.4 PLTs= 218K Coags Normal Na= 141 K= 4.1 CL= 106 HCO3= 23 BUN/Cr= 37/2.1 BS= 262 MAJOR PROBLEMS NOW: 1. CVA 2 Hypertensive ICH 2. New Onset / Parosymal A fib 3. s/p Fall at home 4. Azotemia, 2 renal autoregulation with control of HTN, Rhabdo resolved. 5. DM II PLAN: 1. Hold further doses of Clonidine- can cause bradycardia 2. Hydrazine increased to 100mg TID. Minoxidil 5mg QD added today. 3. If needed, could increase ACEi further to 40mg QD, but any further increase in Cr may preclude this. 4. Etiology of fevers still unclear, no obvious source; on empiric Zosyn, ?? central etiology?? 5. Maintain normoglycemia. Levemir increased today. He does eat 100% of meals. 6. Speech/ PT/OT / Rehab. PO diet chnaged to Finely chopped and nectar thick fluids.
[2016-07-14] MEDS: Insulin Regular 100 units/ml SC SCH ×4 (11:15→22:11)
[2016-07-15 05:24] LABS: HEMATOCRIT 29.8 % (35.0-51.0); MEAN CELL VOLUME 84.6 fl (80.0-94.0); MEAN CORPUSCULAR HEMOGLOBIN 28.8 pg (27.0-31.0); MEAN CORPUSCULAR HGB CONC 34.1 g/dL (33.0-37.0); WHITE BLOOD COUNT 7.4 K/uL (4.8-10.8)
[2016-07-15 05:30] LABS: ALB/GLOB RATIO 1.2 (1.0-2.1); BILIRUBIN,TOTAL 0.4 mg/dl (0.2-1.3); CALCIUM 8.2 mg/dL (8.4-10.2); POTASSIUM 3.8 MMOL/L (3.6-5.0); TOTAL PROTEIN 6.3 G/DL (6.3-8.2)
[2016-07-15 05:45] LABS: T4 8.04 ug/dl (5.5-11.0)
[2016-07-15 05:59] LABS: THYROID STIMULATING HORMONE 1.74 mIU/ML (0.46-4.68)
[2016-07-15] MEDS: Insulin Lispro (humaLOG) 100 Units/ml Inj SC SCH ×7 (06:43→22:36)
--- NOTE | 2016-07-15 08:39 | CON ---
DATE: 07/15/2016 ROOM: In CCU, room 435. HISTORY OF PRESENT ILLNESS: This is a 71-year-old male with known history of type 2 diabetes and hyp ertension, presenting here with sudden onset of left-sided weakness and evaluated to have an acute CV A with intracerebral hemorrhage and is now being referred for diabetic evaluation because of superven ing hyperglycemic accelerations as noted thereof. PAST MEDICAL HISTORY: As mentioned above, history of type 2 diabetes, currently using glipizide give n as 10 mg b.i.d. with metformin at 1000 mg b.i.d.; history of hypertension and dyslipidemia, history of prostate carcinoma. FAMILY HISTORY: Positive for hypertension and heart disease. SOCIAL HISTORY: The patient lives in the same building with his son, has a supportive family otherwi se. Has a prior history of smoking but quit some years ago. No other known substance use. REVIEW OF SYSTEMS: As mentioned above, admits to generalized body weakness with easy fatigability an d tiredness and suboptimal energy level. Also admits to dizziness and lightheadedness, and apparentl y had an accidental fall at home as noted, and was actually found by his son about 24 hours later aft er the fall, and he was actually responsive, but lying on the floor as noted. No chest pains or palp itations or PNDs. His oral intake has been variable with nausea and dyspepsia and vague upper abdomi nal pain. Also admits to marked polyuria, nocturia, polydipsia as noted. PHYSICAL EXAMINATION: GENERAL: This is an average built male in no apparent distress. VITAL SIGNS: Blood pressure of 180/100, pulse of 100 beats per minute/irregular, temperature 99, res pirations 20. Height is 5 foot 5 inches and weight is 150 pounds. HEENT: Head normocephalic. Eyes anicteric with pink conjunctivae. Fundoscopy not possible at this time. Ears, nose and throat otherwise normal. NECK: Supple. Thyroid gland is normal size. No carotid bruits or any cervical adenopathy. CARDIOPULMONARY: There is an adynamic precordium. S1, S2 is rapid and irregular. LUNGS: Show scattered rhonchi. ABDOMEN: Flat, soft with positive bowel sounds. EXTREMITIES: No peripheral edema. Pulses are +2 bilaterally. There is evidence of left-sided hemip aresis and weakness with a left facial droop as noted. LABORATORY DATA: Glucose levels have ranged from 383-412 and 443 mg/dL. His latest chemistry showed a BUN of 37, sodium 141, potassium 4.1, chloride 106, CO2 23, glucose 262 and creatinine 2.1. ASSESSMENT: This is a 71-year-old male with uncontrolled and decompensated type 2 insulin-requiring diabetes with supervening marked hyperglycemic accelerations compared to the initial admitting glucos e values as noted, and the most likely etiology would be the so-called increased insulin resistance f rom intercurrent physical stressors as noted thereof. He also has an acute cerebrovascular accident with intracerebral hemorrhage and residual left-sided hemiparesis and left facial palsy with mild yolanda nophagia and dysphagia as noted thereof. He also has recent onset of paroxysmal atrial fibrillation as noted. There is also with progressive azotemia with renal insufficiency, most likely related to t he recent acute rhabdomyolysis as noted thereof. PLAN OF MANAGEMENT: As discussed with the staff, we will start him on a more physiologic basal and b olus insulin dose regimen with Levemir started tonight at 20 units subQ at bedtime daily and will inc rease to 40 units at bedtime daily to start tomorrow. Will also add Humalog given as 14 units subQ t .i.d. before meals, and will modify the coverage scale to obviate hypoglycemia using a low dose algor ithm with Humalog insulin as given. Will obtain serial chemistries and supplement accordingly as madeleine limon. Will follow and advise accordingly. Will also do thyroid studies to exclude any underlying thy roid endocrinopathy. Niki Cesar MD cc: [id number] TT: 07/15/2016 08:38:06 Confirmation # [id number] Dictation # [id number] diana
--- NOTE | 2016-07-15 09:35 | CP.PCM.PN ---
Subjective - Date & Time of Evaluation Date of Evaluation: 07/15/16 Time of Evaluation: 09:30 - Subjective Subjective: still with low grade fever cultures negative so far tolerating PO diet occ cough denies CP no SOB No abd pain Objective - Vital Signs/Intake and Output Vital Signs (last 24 hours): Temp Pulse Resp BP Pulse Ox 100.4 F H 85 18 157/69 H 99 07/15/16 09:04 07/15/16 08:59 07/15/16 08:00 07/15/16 08:59 07/15/16 08:00 Intake and Output: 07/15/16 07/15/16 06:59 18:59 Intake Total 350 Balance 350 - Medications Medications: Current Medications Acetaminophen (Tylenol 325mg Tab) 650 mg PO Q6 PRN PRN Reason: Pain, Mild (1-3) Last Admin: 07/14/16 14:47 Dose: 650 mg Acetaminophen (Tylenol 325mg Tab) 650 mg PO Q6 PRN PRN Reason: Fever >100.4 F Last Admin: 07/15/16 09:04 Dose: 650 mg Amlodipine Besylate (Norvasc) 10 mg PO DAILY [facility] Last Admin: 07/15/16 08:59 Dose: 10 mg Atorvastatin Calcium (Lipitor) 20 mg PO DAILY [facility] Last Admin: 07/15/16 08:58 Dose: 20 mg Famotidine (Pepcid) 40 mg PO HS [facility] Last Admin: 07/14/16 22:11 Dose: 40 mg Glipizide (Glucotrol) 10 mg PO BID [facility] Last Admin: 07/15/16 08:57 Dose: 10 mg Hydralazine HCl (Apresoline) 100 mg PO TID [facility] Last Admin: 07/15/16 08:55 Dose: 100 mg Hydralazine HCl (Apresoline) 10 mg IV Q6 PRN PRN Reason: Systolic Blood Pressure Piperacillin Sod/Tazobactam (Sod 2.25 gm/ Sodium Chloride) 100 mls @ 100 mls/ hr IVPB Q8@0500,1300,2100 [facility] Last Admin: 07/15/16 04:43 Dose: 100 mls/hr Vancomycin HCl 500 mg/ Sodium (Chloride) 100 mls @ 100 mls/hr IVPB ONCE ONE Stop: 07/16/16 10:32 Insulin Detemir (Levemir) 40 units SC [facility] Insulin Human Lispro (Humalog) 14 units SC AC [facility] Last Admin: 07/15/16 09:06 Dose: 14 units Insulin Human Lispro (Humalog) 0 units SC ACHS [facility] PRN Reason: Protocol Last Admin: 07/15/16 06:43 Dose: Not Given Minoxidil (Minoxidil) 5 mg PO DAILY [facility] Last Admin: 07/15/16 08:59 Dose: 5 mg Tamsulosin HCl (Flomax) 0.4 mg PO DAILY [facility] Last Admin: 07/15/16 08:56 Dose: 0.4 mg - Labs Labs: 07/15/16 05:00 07/15/16 05:00 PT 10.8 SECONDS (9.6-11.2) 07/07/16 00:40 INR 1.04 (0.92-1.08) 07/07/16 00:40 APTT 26.9 SECONDS (23.3-32.5) 07/07/16 00:40 - Constitutional Appears: No Acute Distress, Chronically Ill - Head Exam Head Exam: NORMAL INSPECTION, NORMOCEPHALIC - Eye Exam Eye Exam: EOMI, Normal appearance Pupil Exam: NORMAL ACCOMMODATION - ENT Exam ENT Exam: Mucous Membranes Moist, Normal External Ear Exam - Neck Exam Neck Exam: Full ROM. absent: Meningismus - Respiratory Exam Respiratory Exam: Rales (bases), NORMAL BREATHING PATTERN. absent: Wheezes, Respiratory Distress - Cardiovascular Exam Cardiovascular Exam: REGULAR RHYTHM, +S1, +S2 - GI/Abdominal Exam GI & Abdominal Exam: Soft, Normal Bowel Sounds. absent: Tenderness - Extremities Exam Extremities Exam: Normal Capillary Refill. absent: Calf Tenderness, Pedal Edema - Back Exam Back Exam: absent: CVA tenderness (L), CVA tenderness (R) - Neurological Exam Neurological Exam: Alert, Awake Neuro motor strength exam: Left Upper Extremity: 0, Right Upper Extremity: 5, Left Lower Extremity: 0, Right Lower Extremity: 5 Additional comments: oriented to person and place dysarthric however comprehensible , minimal verbal output , follows simple commands - Psychiatric Exam Psychiatric exam: Normal Affect, Normal Mood - Skin Skin Exam: Dry, Normal Color, Warm Assessment and Plan - Assessment and Plan (Free Text) Assessment: 71 years old male with hx of HTN, DM II and Prostate Cancer, brought to the ED with left sided weakness. He fell out of bed and could not get up from the floor where he remained for approximately 24 hours until his son found him. The NIHSS was 14. CT head showed acute right basal ganglia hematoma with edema . Patient was admitted in ICU, neurology and neurosurgery were consulted. Repeat Ct head showed stable bleed , tiny new left occipital lobe bleed. He was started on Cardene drip for BP control , at present off Cardene drip. He has left sided weakness and hemineglect At present, pt still has low grade fever however BP and glucose better controlled 1.Intracranial Hemorrhage with left hemiplegia Repeat Ct : Stable acute right basal ganglia hematoma with surrounding edema or ischemic parenchyma. Stable 3 mm midline shift towards the left. Bilateral intraventricular hemorrhage, right greater than left. Tiny new focal hemorrhage left occipital lobe which may be parenchymal or may represent a tiny amount of subarachnoid blood. Avoid any antiplatelet or anticoagulation Patient with dysarthria, left hemineglect ,dysphagia and left hemiparesis Neurology and neurosurgery consulted. No surgical intervention indicated at present BP uncontrolled .Off cardene drip. Increased Hydralazine 100 mg po TID , and norvasc 10 mg Started Minoxidil and stopped Clonidine d/c Vasotec due to worseing renal fxn Discontinued labetalol due to bradycardia episode. Patient has problems with swallowing. Video swallow showed no aspiration only intermittent penetration with liquids keep HOB elevated Continue Physical therapy/ Occupational Therapy For discharge to [facility] when medically stable 2. Paroxysmal A Fib Back in SR on monitor no Anticoagulation due to ICH 3. Acute kidney injury Most likely prerenal , unknown prior kidney function Crea 2.6 Nephrology consult 4. Acute rhabdomyolysis resolved with hydration 5. DM type II with Hyperglycemia Hgba1c 6.1 Continue monitoring accu with Novolog sliding scale on Glipizide 10 mg PO bID Increase Levemir from 14 units to 20 units Sq HS 6. Pneumonia poss Aspiration PNA Pt is febrile Tmax 100.8 last 12 hours , no leukocytosis, Urine c/s: neg Blood c/s; Neg so far CXR showed lower lobe infiltrate on IV Zosyn, will give IV Vanco x 1 dose check Vanco level in am rpt CXR 7.Hypertension , uncontrolled off Cardene drip Increased hydralazine to 100 mg po TID Continue Norvasc 10 mg po Qd D/c clonidine Started Minoxidil 5 mg po QD discontinued Labetalol due to episode of bradycardia 8. Dyslipidemia Tg 166 Chol 242 LDL 134 Started Atorvastatin 9.Mild Anemia Most likely dilutional 10.Stress ulcer Prophylaxis Pepcid 11. DVT prophylaxis SCD 12. BPH started Flomax
--- NOTE | 2016-07-15 12:02 | CP.PCM.CON ---
History of Present Illness - History of Present Illness History of Present Illness: This patient who is 71 years old admitted because of CVA and very high blood pressure. With long history of diabetes mellitus hypertension and the patient admitted to intensive care unit his blood pressure better controlled at the present and patient also noted to have high BUN/creatinine for which I was called to see the gentleman. The history is limited from the patient the chart reviewed and the patient examined Social history as noted in the chart Also reported in the record history of CVA of the prostate Review of Systems - Constitutional Constitutional: As Per HPI, Anorexia - Cardiovascular Cardiovascular: Dyspnea on Exertion. absent: Chest Pain - Respiratory Respiratory: Dyspnea on Exertion - Gastrointestinal Gastrointestinal: absent: Abdominal Pain - Genitourinary Genitourinary: Nocturia - Musculoskeletal Musculoskeletal: As Per HPI, Abnormal Gait - Neurological Neurological: As Per HPI, Focal Weakness - Endocrine Endocrine: As Per HPI Past Patient History - Past Medical History & Family History Past Medical History?: Yes - Past Social History Smoking Status: Former Smoker - CARDIAC Hx Hypertension: Yes - PULMONARY Hx Respiratory Disorders: No - NEUROLOGICAL Hx Neurological Disorder: No - HEENT Hx HEENT Problems: No - RENAL Hx Chronic Kidney Disease: No - ENDOCRINE/METABOLIC Hx Diabetes Mellitus Type 2: Yes - HEMATOLOGICAL/ONCOLOGICAL Hx Blood Disorders: No - INTEGUMENTARY Hx Dermatological Problems: No - MUSCULOSKELETAL/RHEUMATOLOGICAL Hx Musculoskeletal Disorders: No Hx Falls: No - GASTROINTESTINAL Hx Gastrointestinal Disorders: No - GENITOURINARY/GYNECOLOGICAL Hx Prostate Cancer: Yes - PSYCHIATRIC Hx Psychophysiologic Disorder: No Hx Substance Use: No - SURGICAL HISTORY Hx Surgeries: No - ANESTHESIA Hx Anesthesia: No Meds Allergies/Adverse Reactions: Allergies Allergy/AdvReac Type Severity Reaction Status Date / Time No Known Allergies Allergy Verified 07/07/16 00:03 - Medications Medications: Current Medications Acetaminophen (Tylenol 325mg Tab) 650 mg PO Q6 PRN PRN Reason: Pain, Mild (1-3) Last Admin: 07/14/16 14:47 Dose: 650 mg Acetaminophen (Tylenol 325mg Tab) 650 mg PO Q6 PRN PRN Reason: Fever >100.4 F Last Admin: 07/15/16 09:04 Dose: 650 mg Amlodipine Besylate (Norvasc) 10 mg PO DAILY [facility] Last Admin: 07/15/16 08:59 Dose: 10 mg Atorvastatin Calcium (Lipitor) 20 mg PO DAILY [facility] Last Admin: 07/15/16 08:58 Dose: 20 mg Famotidine (Pepcid) 40 mg PO HS [facility] Last Admin: 07/14/16 22:11 Dose: 40 mg Glipizide (Glucotrol) 10 mg PO BID [facility] Last Admin: 07/15/16 08:57 Dose: 10 mg Hydralazine HCl (Apresoline) 100 mg PO TID [facility] Last Admin: 07/15/16 08:55 Dose: 100 mg Hydralazine HCl (Apresoline) 10 mg IV Q6 PRN PRN Reason: Systolic Blood Pressure Piperacillin Sod/Tazobactam (Sod 2.25 gm/ Sodium Chloride) 100 mls @ 100 mls/ hr IVPB Q8@0500,1300,2100 [facility] Last Admin: 07/15/16 04:43 Dose: 100 mls/hr Vancomycin HCl 500 mg/ Sodium (Chloride) 100 mls @ 100 mls/hr IVPB ONCE ONE Stop: 07/16/16 10:32 Insulin Detemir (Levemir) 40 units SC [facility] Insulin Human Lispro (Humalog) 14 units SC AC [facility] Last Admin: 07/15/16 09:06 Dose: 14 units Insulin Human Lispro (Humalog) 0 units SC ACHS [facility] PRN Reason: Protocol Last Admin: 07/15/16 06:43 Dose: Not Given Minoxidil (Minoxidil) 5 mg PO DAILY [facility] Last Admin: 07/15/16 08:59 Dose: 5 mg Tamsulosin HCl (Flomax) 0.4 mg PO DAILY [facility] Last Admin: 07/15/16 08:56 Dose: 0.4 mg Physical Exam - Constitutional Appears: No Acute Distress - ENT Exam ENT Exam: Mucous Membranes Moist - Respiratory Exam Respiratory Exam: NORMAL BREATHING PATTERN. absent: Chest Wall Tenderness - Cardiovascular Exam Cardiovascular Exam: absent: JVD, Rubs - GI/Abdominal Exam GI & Abdominal Exam: Normal Bowel Sounds - Extremities Exam Extremities exam: Negative for: calf tenderness - Back Exam Back exam: absent: CVA tenderness (L), CVA tenderness (R) - Neurological Exam Neurological exam: Alert Results - Vital Signs Recent Vital Signs: Last Vital Signs Temp 100.4 F H 07/15/16 09:04 Pulse 80 07/15/16 10:00 Resp 18 07/15/16 10:00 BP 110/50 L 07/15/16 10:00 Pulse Ox 96 07/15/16 10:00 - Labs Result Diagrams: 07/15/16 05:00 07/15/16 05:00 Labs: Laboratory Results - last 24 hr 07/14/16 07/14/16 07/15/16 15:57 21:17 05:00 WBC 7.4 RBC 3.52 L Hgb 10.2 L Hct 29.8 L MCV 84.6 MCH 28.8 MCHC 34.1 RDW 14.0 Plt Count 234 Sodium Potassium Chloride Carbon Dioxide Anion Gap BUN Creatinine Est GFR ( Amer) Est GFR (Non-Af Amer) POC Glucose (mg/dL) 383 H 412 H* Random Glucose Calcium Total Bilirubin AST ALT Alkaline Phosphatase Total Protein Albumin Globulin Albumin/Globulin Ratio Triglycerides Cholesterol LDL Cholesterol Direct HDL Cholesterol Free T4 Thyroxine (T4) TSH 3rd Generation 07/15/16 07/15/16 07/15/16 05:00 05:00 06:18 WBC RBC Hgb Hct MCV MCH MCHC RDW Plt Count Sodium 139 Potassium 3.8 Chloride 105 Carbon Dioxide 24 Anion Gap 14 BUN 43 H Creatinine 2.6 H Est GFR ( Amer) 30 Est GFR (Non-Af Amer) 24 POC Glucose (mg/dL) 264 H Random Glucose 292 H Calcium 8.2 L Total Bilirubin 0.4 AST 26 ALT 42 Alkaline Phosphatase 69 Total Protein 6.3 Albumin 3.4 L Globulin 2.9 Albumin/Globulin Ratio 1.2 Triglycerides 137 Cholesterol 112 LDL Cholesterol Direct 53 HDL Cholesterol 30 Free T4 1.48 Thyroxine (T4) 8.04 TSH 3rd Generation 1.74 Assessment & Plan - Assessment and Plan (Free Text) Assessment: Patient appears to have acute kidney injury perhaps superimposed on chronic kidney disease we do not have the baseline of serum creatinine prior to the admission. The cause of her acute kidney injury perhaps from accelerated hypertension among other things including diabetic #2 hypertension which has been better controlled the medication has been reviewed My recommendation to do ratio of protein to creatinine to see how much she has proteinuria All antihypertensive medication noted at the present ALESSANDRO inhibitor or ARB on hold because of the current condition which eventually when his stable he may have to be put back on either Monday kidney function are stable. Also suggested do ultrasound of the kidney.
--- NOTE | 2016-07-15 13:26 | RAD ---
HISTORY: ff up Pneumonia . Portable upright study 08:45. COMPARISON: 07/11/2016. FINDINGS: LUNGS: Resolution of previously identified lower lobe infiltrates. PLEURA: No significant pleural effusion identified, no pneumothorax apparent. CARDIOVASCULAR: No radiographic findings to suggest acute or significant cardiovascular disease. OSSEOUS STRUCTURES: No significant abnormalities. VISUALIZED UPPER ABDOMEN: Normal. OTHER FINDINGS: None. IMPRESSION: No active disease.
--- NOTE | 2016-07-15 14:19 | PN ---
DATE: 07/15/2016 The patient in ICU, bed 435. TIME SPENT: 25 minutes. Seen and examined at the bedside. Overnight events reviewed. Low grade fever. Telemetry, sinus rhy thm with occasional bradycardia. Systolic blood pressure 141-163. This morning, alert, awake, follo ws commands, appropriate, able to tolerate pureed diet with nectar thick liquid. Denies headache. N o shortness of breath, chest pain, palpitations. No abdominal discomfort, no diarrhea. PHYSICAL EXAMINATION: VITAL SIGNS: Temperature 100.1-100.3, heart rate 88-93, blood pressure 155-163 over -71, respir atory rate 12-23, saturating 100% on oxygen 2 liters nasal cannula. Intake/output reviewed. HEENT: Pupils reactive. Conjunctivae pink. Sclerae white. No nystagmus. NECK: Supple. No jugular venous distention. No carotid bruit. CHEST: Bilateral breath sounds, diminished in intensity, clear to auscultation. HEART: Rhythm regular. S1, S2 normal. No audible murmur or rub. ABDOMEN: Soft, bowel sounds present. Liver, spleen not palpable. EXTREMITIES: No edema. No palpable cord. No peripheral cyanosis. Distal pulses are intact and sym metric. NEUROLOGIC: Left hemiparesis, unchanged. SKIN: Without rash. LABORATORY DATA: WBC 7.4, hemoglobin 10.2, hematocrit 29.8, platelet count 234. SMA-7: Sodium 139, potassium 3.8, chloride 105, CO2 24, BUN 43, creatinine 2.6, glucose random 266, calcium 8.2, total bilirubin 0.4, AST 26, ALT 42, alkaline phosphatase 69, total protein 6.3, albumin 3.4. Triglyceride s 137, cholesterol 112, LDL 53, HDL 30. Free T4 1.48. TSH 1.74. Urinalysis negative. Chest x-ray done this morning shows no focal infiltrate. CURRENT MEDICATIONS: Include Tylenol 650 q. 6 p.r.n., Norvasc 10 mg p.o. daily, hydralazine 100 mg p .o. 3 times daily, hydralazine 10 mg IV q. 6 p.r.n. for systolic pressure more than 160, Levemir 40 u nits subQ at bedtime, Lipitor 20 mg p.o. daily, Pepcid 40 mg p.o. daily, Glucotrol 10 mg p.o. twice d aily, lispro 40 units subQ before meals and at bedtime, minoxidil 5 mg p.o. daily, Zosyn 2.25 grams q . 6 hours, Flomax 0.4 mg p.o. daily, vancomycin 500 mg x 1. IMPRESSION: Admitted with intracerebral hematoma, repeat CT shows no further expansion. Left hemipa resis secondary to cerebrovascular accident, unchanged, for OT and PT. Paroxysmal atrial fibrillatio n, back in sinus rhythm, no anticoagulation due to intracerebral hematoma. Acute on chronic kidney d isease, history of diabetes and hypertension. On admission, noted to have dehydration, stable. Seen by renal consult. Acute rhabdomyolysis, improved. Diabetes mellitus type 2, hemoglobin A1c 6.1, fo llowed by endocrinology consult, currently on Levemir, lispro and glipizide. Low grade fever, unclea r source, cultures negative so far, could be central, empirically covered for possible aspiration pne umonia. Hypertension, improved, on hydralazine, Norvasc, minoxidil. Dyslipidemia, mild anemia, stab le. Continue OT, PT. Stable for transfer to regular floor. Apolinar Maguire MD cc: [id number] TT: 07/15/2016 14:18:50 Confirmation # [id number] Dictation # [id number] en
--- NOTE | 2016-07-15 20:23 | PN ---
DATE: 07/15/2016 LOCATION: ICU room 435. SUBJECTIVE: This is a 71-year-old male with recent accelerated hypertension and supervening intracra nial hemorrhage and is now being followed closely for metabolic management because of recent hypergly cemic accelerations as noted thereof. His glucose values today are fluctuating and have ranged from 264-267 mg/dL. His latest chemistry showed a BUN of 43, sodium 139, potassium 3.8, chloride 105, CO2 24, glucose 292, and creatinine 2.6. He also has concomitant acute rhabdomyolysis with supervening progressive renal insufficiency as noted thereof. His bedtime glucose was actually 412 last night as noted. ASSESSMENT: This is a 71-year-old male with uncontrolled and decompensated type 2 insulin-requiring diabetes with marked hyperglycemic accelerations as noted thereof and related to the intercurrent phy sical stressors which has been now with increased insulin resistance and further impaired glucose gustavo erance thereof. So at this time, we will modify once again his basal and bolus insulin regimen and i ncrease the Levemir to 40 units subQ at bedtime daily to start tonight. We will continue the Humalog given as 14 units subQ t.i.d. before meals as ordered. We will titrate incrementally as indicated t o optimize metabolic control. We will obtain serial chemistries and supplement accordingly as needed . We will also continue the low-dose correction scale using Humalog insulin as given. We will follo w and advise accordingly. Niki Cesar MD cc: [id number] TT: 07/15/2016 20:22:35 Confirmation # [id number] Dictation # [id number] obi
[2016-07-15] MEDS ORDERED: Insulin Detemir 100 Units/ml Inj SC SCH (22:00)
[2016-07-16] MEDS: Insulin Lispro (humaLOG) 100 Units/ml Inj SC SCH ×7 (06:40→21:14)
--- NOTE | 2016-07-16 09:45 | PN ---
DATE: 07/16/2016 ICU, ROOM: 435 SUBJECTIVE: This is a 71-year-old male with recent acute CVA and associated intracerebral hemorrhage with residual left-sided weakness and is now being followed closely for metabolic management because of marked hyperglycemic accelerations as noted thereof. His glucose values are still elevated today , ranging from 267 to 307 mg/dL. His latest chemistries include a BUN of 43, sodium 139, potassium 3 .8, chloride 105, CO2 24, glucose 292 and creatinine 2.6. So, at this time, we will modify once agai n his basal and bolus insulin regimen and increase the Humalog to 16 units before meals t.i.d. and Le vemir to 46 units subQ at bedtime daily to start tonight. We will continue the low-dose correction s nikki using Humalog insulin as given to obviate hypoglycemia and detailed orders have been given. We will titrate incrementally as indicated to optimize metabolic control. We will also obtain serial ch emistries and supplement accordingly as needed. We will follow. Niki Cesar MD cc: [id number] TT: 07/16/2016 09:45:02 Confirmation # [id number] Dictation # [id number] [email or web address]
--- NOTE | 2016-07-16 12:19 | CP.PCM.PN ---
Subjective - Date & Time of Evaluation Date of Evaluation: 07/16/16 Time of Evaluation: 12:00 - Subjective Subjective: No fever for more than 24 hrs noted hiccups denies CP no SOB good PO intake no abd pain Objective - Vital Signs/Intake and Output Vital Signs (last 24 hours): Temp Pulse Resp BP Pulse Ox 98.1 F 82 18 132/60 97 07/16/16 12:00 07/16/16 12:00 07/16/16 12:00 07/16/16 12:00 07/16/16 12:00 Intake and Output: 07/16/16 07/16/16 06:59 18:59 Intake Total 350 Output Total 200 Balance 150 - Medications Medications: Current Medications Acetaminophen (Tylenol 325mg Tab) 650 mg PO Q6 PRN PRN Reason: Pain, Mild (1-3) Last Admin: 07/14/16 14:47 Dose: 650 mg Acetaminophen (Tylenol 325mg Tab) 650 mg PO Q6 PRN PRN Reason: Fever >100.4 F Last Admin: 07/15/16 09:04 Dose: 650 mg Amlodipine Besylate (Norvasc) 10 mg PO DAILY [facility] Last Admin: 07/16/16 09:21 Dose: 10 mg Atorvastatin Calcium (Lipitor) 20 mg PO DAILY [facility] Last Admin: 07/16/16 09:20 Dose: 20 mg Famotidine (Pepcid) 40 mg PO HS [facility] Last Admin: 07/15/16 22:07 Dose: 40 mg Glipizide (Glucotrol) 10 mg PO BID [facility] Last Admin: 07/16/16 09:17 Dose: 10 mg Hydralazine HCl (Apresoline) 100 mg PO TID [facility] Last Admin: 07/16/16 09:16 Dose: 100 mg Hydralazine HCl (Apresoline) 10 mg IV Q6 PRN PRN Reason: Systolic Blood Pressure Piperacillin Sod/Tazobactam (Sod 2.25 gm/ Sodium Chloride) 100 mls @ 100 mls/ hr IVPB Q8@0500,1300,2100 [facility] Last Admin: 07/16/16 04:20 Dose: 100 mls/hr Insulin Detemir (Levemir) 46 units SC [facility] Insulin Human Lispro (Humalog) 0 units SC [facility] PRN Reason: Protocol Last Admin: 07/16/16 11:23 Dose: Not Given Insulin Human Lispro (Humalog) 16 units SC [facility] Last Admin: 07/16/16 11:24 Dose: 16 units Isosorbide Mononitrate (Imdur) 30 mg PO DAILY [facility] Minoxidil (Minoxidil) 5 mg PO DAILY [facility] Last Admin: 07/16/16 09:21 Dose: 5 mg Tamsulosin HCl (Flomax) 0.4 mg PO DAILY [facility] Last Admin: 07/16/16 09:17 Dose: 0.4 mg - Labs Labs: 07/15/16 05:00 07/15/16 05:00 PT 10.8 SECONDS (9.6-11.2) 07/07/16 00:40 INR 1.04 (0.92-1.08) 07/07/16 00:40 APTT 26.9 SECONDS (23.3-32.5) 07/07/16 00:40 - Constitutional Appears: No Acute Distress, Chronically Ill - Head Exam Head Exam: NORMAL INSPECTION, NORMOCEPHALIC - Eye Exam Eye Exam: EOMI, Normal appearance Pupil Exam: NORMAL ACCOMMODATION - ENT Exam ENT Exam: Mucous Membranes Moist, Normal External Ear Exam - Neck Exam Neck Exam: Full ROM. absent: Meningismus - Respiratory Exam Respiratory Exam: Rales (bases), NORMAL BREATHING PATTERN. absent: Wheezes, Respiratory Distress - Cardiovascular Exam Cardiovascular Exam: REGULAR RHYTHM, +S1, +S2 - GI/Abdominal Exam GI & Abdominal Exam: Soft, Normal Bowel Sounds. absent: Tenderness - Extremities Exam Extremities Exam: Normal Capillary Refill. absent: Calf Tenderness, Pedal Edema - Back Exam Back Exam: absent: CVA tenderness (L), CVA tenderness (R) - Neurological Exam Neurological Exam: Alert, Awake Neuro motor strength exam: Left Upper Extremity: 0, Right Upper Extremity: 5, Left Lower Extremity: 0, Right Lower Extremity: 5 Additional comments: oriented to person and place dysarthric however comprehensible , minimal verbal output , follows simple commands - Psychiatric Exam Psychiatric exam: Normal Affect, Normal Mood - Skin Skin Exam: Dry, Normal Color, Warm Assessment and Plan - Assessment and Plan (Free Text) Assessment: 71 years old male with hx of HTN, DM II and Prostate Cancer, brought to the ED with left sided weakness. He fell out of bed and could not get up from the floor where he remained for approximately 24 hours until his son found him. The NIHSS was 14. CT head showed acute right basal ganglia hematoma with edema . Patient was admitted in ICU, neurology and neurosurgery were consulted. Repeat Ct head showed stable bleed , tiny new left occipital lobe bleed. He was started on Cardene drip for BP control , at present off Cardene drip. He has left sided weakness and hemineglect At present, pt still has low grade fever however BP and glucose better controlled 1.Intracranial Hemorrhage with left hemiplegia Repeat Ct : Stable acute right basal ganglia hematoma with surrounding edema or ischemic parenchyma. Stable 3 mm midline shift towards the left. Bilateral intraventricular hemorrhage, right greater than left. Tiny new focal hemorrhage left occipital lobe which may be parenchymal or may represent a tiny amount of subarachnoid blood. Avoid any antiplatelet or anticoagulation Patient with dysarthria, left hemineglect ,dysphagia and left hemiparesis Neurology and neurosurgery consulted. No surgical intervention indicated at present BP uncontrolled .Off cardene drip. Increased Hydralazine 100 mg po TID , and norvasc 10 mg Started Minoxidil and stopped Clonidine d/c Vasotec due to worseing renal fxn Discontinued labetalol due to bradycardia episode. Patient has problems with swallowing. Video swallow showed no aspiration only intermittent penetration with liquids keep HOB elevated Continue Physical therapy/ Occupational Therapy For discharge to [facility] when medically stable 2. Paroxysmal A Fib Back in SR on monitor no Anticoagulation due to ICH 3. Acute kidney injury Most likely prerenal , unknown prior kidney function Crea 2.6 Nephrology consult 4. Acute rhabdomyolysis resolved with hydration 5. DM type II with Hyperglycemia Hgba1c 6.1 Continue monitoring accu with Novolog sliding scale on Glipizide 10 mg PO bID Increase Levemir from 14 units to 20 units Sq HS 6. Pneumonia poss Aspiration PNA Pt is febrile Tmax 100.8 last 12 hours , no leukocytosis, Urine c/s: neg Blood c/s; Neg so far CXR showed lower lobe infiltrate on IV Zosyn, will give IV Vanco x 1 dose check Vanco level in am rpt CXR 7.Hypertension , uncontrolled off Cardene drip Increased hydralazine to 100 mg po TID Continue Norvasc 10 mg po Qd D/c clonidine Started Minoxidil 5 mg po QD discontinued Labetalol due to episode of bradycardia 8. Dyslipidemia Tg 166 Chol 242 LDL 134 Started Atorvastatin 9.Mild Anemia Most likely dilutional 10.Stress ulcer Prophylaxis Pepcid 11. DVT prophylaxis SCD 12. BPH started Flomax
[2016-07-16 12:41] LABS: CALCIUM 8.4 mg/dL (8.4-10.2); POTASSIUM 4.3 MMOL/L (3.6-5.0)
--- NOTE | 2016-07-16 13:25 | CP.PCM.PN ---
Subjective - Date & Time of Evaluation Date of Evaluation: 07/16/16 Time of Evaluation: 12:20 - Subjective Subjective: Pt is lethargic Hiccups noted Objective - Vital Signs/Intake and Output Vital Signs (last 24 hours): Temp Pulse Resp BP Pulse Ox 98.1 F 82 18 132/60 97 07/16/16 12:00 07/16/16 13:07 07/16/16 12:00 07/16/16 13:07 07/16/16 12:00 Intake and Output: 07/16/16 07/16/16 06:59 18:59 Intake Total 350 Output Total 200 Balance 150 - Medications Medications: Current Medications Acetaminophen (Tylenol 325mg Tab) 650 mg PO Q6 PRN PRN Reason: Pain, Mild (1-3) Last Admin: 07/14/16 14:47 Dose: 650 mg Acetaminophen (Tylenol 325mg Tab) 650 mg PO Q6 PRN PRN Reason: Fever >100.4 F Last Admin: 07/15/16 09:04 Dose: 650 mg Amlodipine Besylate (Norvasc) 10 mg PO DAILY [facility] Last Admin: 07/16/16 09:21 Dose: 10 mg Atorvastatin Calcium (Lipitor) 20 mg PO DAILY [facility] Last Admin: 07/16/16 09:20 Dose: 20 mg Famotidine (Pepcid) 40 mg PO HS [facility] Last Admin: 07/15/16 22:07 Dose: 40 mg Glipizide (Glucotrol) 10 mg PO BID [facility] Last Admin: 07/16/16 09:17 Dose: 10 mg Hydralazine HCl (Apresoline) 100 mg PO TID [facility] Last Admin: 07/16/16 13:07 Dose: 100 mg Hydralazine HCl (Apresoline) 10 mg IV Q6 PRN PRN Reason: Systolic Blood Pressure Piperacillin Sod/Tazobactam (Sod 2.25 gm/ Sodium Chloride) 100 mls @ 100 mls/ hr IVPB Q8@0500,1300,2100 [facility] Last Admin: 07/16/16 13:09 Dose: 100 mls/hr Insulin Detemir (Levemir) 46 units SC HS [facility] Insulin Human Lispro (Humalog) 0 units SC ACHS [facility] PRN Reason: Protocol Last Admin: 07/16/16 11:23 Dose: Not Given Insulin Human Lispro (Humalog) 16 units SC AC [facility] Last Admin: 07/16/16 11:24 Dose: 16 units Isosorbide Mononitrate (Imdur) 30 mg PO DAILY [facility] Minoxidil (Minoxidil) 5 mg PO DAILY [facility] Last Admin: 07/16/16 09:21 Dose: 5 mg Tamsulosin HCl (Flomax) 0.4 mg PO DAILY [facility] Last Admin: 07/16/16 09:17 Dose: 0.4 mg - Labs Labs: 07/15/16 05:00 07/16/16 12:15 PT 10.8 SECONDS (9.6-11.2) 07/07/16 00:40 INR 1.04 (0.92-1.08) 07/07/16 00:40 APTT 26.9 SECONDS (23.3-32.5) 07/07/16 00:40 - Respiratory Exam Additional comments: Lungs clear - Cardiovascular Exam Cardiovascular Exam: REGULAR RHYTHM - Extremities Exam Extremities Exam: Pedal Edema Assessment and Plan - Assessment and Plan (Free Text) Assessment: Acute on CRF Creat iss stable Accelerated HTN CVA/intracranial bleed IDDM Plan: Will order Renal US urine for microalbumin Continue to monitor renal function
[2016-07-16] MEDS ORDERED: Pantoprazole 40 mg EC Tab PO ONE (14:28)
[2016-07-16] MEDS ORDERED: Insulin Detemir 100 Units/ml Inj SC SCH (22:00)
[2016-07-17] MEDS: Insulin Lispro (humaLOG) 100 Units/ml Inj SC SCH ×7 (08:11→22:02)
[2016-07-17] MEDS: Pantoprazole 40 mg EC Tab PO SCH (08:13)
[2016-07-17 08:59] LABS: CALCIUM 8.1 mg/dL (8.4-10.2); POTASSIUM 4.2 MMOL/L (3.6-5.0)
--- NOTE | 2016-07-17 10:44 | CP.PCM.PN ---
Subjective - Date & Time of Evaluation Date of Evaluation: 07/17/16 Time of Evaluation: 10:00 - Subjective Subjective: No fever good PO intake accdg to [facility] [employer] [facility] good urine output - ( condom catheter) no CP no abd pain no BM x 2-3 days Objective - Vital Signs/Intake and Output Vital Signs (last 24 hours): Temp Pulse Resp BP Pulse Ox 98.8 F 98 H 18 165/68 H 95 07/17/16 08:00 07/17/16 08:14 07/17/16 08:00 07/17/16 08:14 07/17/16 08:00 Intake and Output: 07/17/16 07/17/16 06:59 18:59 Intake Total 350 Output Total 601 Balance -251 - Medications Medications: Current Medications Acetaminophen (Tylenol 325mg Tab) 650 mg PO Q6 PRN PRN Reason: Pain, Mild (1-3) Last Admin: 07/14/16 14:47 Dose: 650 mg Acetaminophen (Tylenol 325mg Tab) 650 mg PO Q6 PRN PRN Reason: Fever >100.4 F Last Admin: 07/15/16 09:04 Dose: 650 mg Amlodipine Besylate (Norvasc) 10 mg PO DAILY [facility] Last Admin: 07/17/16 08:14 Dose: 10 mg Atorvastatin Calcium (Lipitor) 20 mg PO DAILY [facility] Last Admin: 07/17/16 08:14 Dose: 20 mg Famotidine (Pepcid) 40 mg PO HS [facility] Last Admin: 07/16/16 21:00 Dose: 40 mg Glipizide (Glucotrol) 10 mg PO BID [facility] Last Admin: 07/17/16 08:11 Dose: 10 mg Hydralazine HCl (Apresoline) 10 mg IV Q6 PRN PRN Reason: Systolic Blood Pressure Hydralazine HCl (Apresoline) 100 mg PO TID [facility] Last Admin: 07/17/16 08:03 Dose: 100 mg Piperacillin Sod/Tazobactam (Sod 2.25 gm/ Sodium Chloride) 100 mls @ 100 mls/ hr IVPB Q8@0500,1300,2100 [facility] Last Admin: 07/17/16 04:49 Dose: 100 mls/hr Vancomycin HCl 1 gm/ Sodium (Chloride) 250 mls @ 166.667 mls/hr IVPB DAILY [facility] Last Admin: 07/17/16 08:17 Dose: 166.667 mls/hr Insulin Detemir (Levemir) 50 units SC HS [facility] Insulin Human Lispro (Humalog) 0 units SC ACHS [facility] PRN Reason: Protocol Last Admin: 07/17/16 08:11 Dose: Not Given Insulin Human Lispro (Humalog) 16 units SC AC [facility] Last Admin: 07/17/16 08:12 Dose: 16 units Isosorbide Mononitrate (Imdur) 30 mg PO DAILY [facility] Last Admin: 07/17/16 08:13 Dose: 30 mg Minoxidil (Minoxidil) 5 mg PO DAILY [facility] Last Admin: 07/17/16 08:15 Dose: 5 mg Pantoprazole Sodium (Protonix Ec Tab) 40 mg PO DAILY [facility] Last Admin: 07/17/16 08:13 Dose: 40 mg Tamsulosin HCl (Flomax) 0.4 mg PO DAILY [facility] Last Admin: 07/17/16 08:10 Dose: 0.4 mg - Labs Labs: 07/15/16 05:00 07/17/16 06:30 PT 10.8 SECONDS (9.6-11.2) 07/07/16 00:40 INR 1.04 (0.92-1.08) 07/07/16 00:40 APTT 26.9 SECONDS (23.3-32.5) 07/07/16 00:40 - Constitutional Appears: No Acute Distress, Chronically Ill - Head Exam Head Exam: NORMAL INSPECTION, NORMOCEPHALIC - Eye Exam Eye Exam: EOMI, Normal appearance Pupil Exam: NORMAL ACCOMMODATION - ENT Exam ENT Exam: Mucous Membranes Moist, Normal External Ear Exam - Neck Exam Neck Exam: Full ROM. absent: Meningismus - Respiratory Exam Respiratory Exam: Rales (bases), NORMAL BREATHING PATTERN. absent: Wheezes, Respiratory Distress - Cardiovascular Exam Cardiovascular Exam: REGULAR RHYTHM, +S1, +S2 - GI/Abdominal Exam GI & Abdominal Exam: Soft, Normal Bowel Sounds. absent: Tenderness - Extremities Exam Extremities Exam: Normal Capillary Refill. absent: Calf Tenderness, Pedal Edema - Back Exam Back Exam: absent: CVA tenderness (L), CVA tenderness (R) - Neurological Exam Neurological Exam: Alert, Awake Neuro motor strength exam: Left Upper Extremity: 0, Right Upper Extremity: 5, Left Lower Extremity: 0, Right Lower Extremity: 5 Additional comments: oriented to person and place dysarthric however comprehensible , minimal verbal output , follows simple commands - Psychiatric Exam Psychiatric exam: Normal Affect, Normal Mood - Skin Skin Exam: Dry, Normal Color, Warm Assessment and Plan - Assessment and Plan (Free Text) Assessment: 71 years old male with hx of HTN, DM II and Prostate Cancer, brought to the ED with left sided weakness. He fell out of bed and could not get up from the floor where he remained for approximately 24 hours until his son found him. The NIHSS was 14. CT head showed acute right basal ganglia hematoma with edema . Patient was admitted in ICU, neurology and neurosurgery were consulted. Repeat Ct head showed stable bleed , tiny new left occipital lobe bleed. He was started on Cardene drip for BP control , at present off Cardene drip. He has left sided weakness and hemineglect At present, pt has no fever, BP and glucose better controlled 1.Intracranial Hemorrhage with left hemiplegia Repeat Ct : Stable acute right basal ganglia hematoma with surrounding edema or ischemic parenchyma. Stable 3 mm midline shift towards the left. Bilateral intraventricular hemorrhage, right greater than left. Tiny new focal hemorrhage left occipital lobe which may be parenchymal or may represent a tiny amount of subarachnoid blood. Avoid any antiplatelet or anticoagulation Patient with dysarthria, left hemineglect ,dysphagia and left hemiparesis Neurology and neurosurgery consulted. No surgical intervention indicated BP uncontrolled .Off cardene drip. Increased Hydralazine 100 mg po TID , and norvasc 10 mg Started Minoxidil and stopped Clonidine d/c Vasotec due to worsening renal fxn Discontinued labetalol due to bradycardia episode. Patient has problems with swallowing. Video swallow showed no aspiration only intermittent penetration with liquids keep HOB elevated Continue Physical therapy/ Occupational Therapy For discharge to [facility] in am 2. Paroxysmal A Fib Back in SR on monitor no Anticoagulation due to ICH 3. Acute kidney injury unknown prior kidney function Crea 2.9 Nephrology consult Renal sonogram : complex renal mass- will ddo CT scan of kidneys 4. Acute rhabdomyolysis resolved with hydration 5. DM type II with Hyperglycemia Hgba1c 6.1 Continue monitoring accu with Novolog sliding scale on Glipizide 10 mg PO bID Increase Levemir to 50 units q hs Endo - Dr Cam consulted 6. Pneumonia poss Aspiration PNA pt was febrile, no leukocytosis Fever now resolved Urine c/s: neg Blood c/s; Neg so far CXR showed lower lobe infiltrate on IV Zosyn, will give IV Vanco x 1 dose check Vanco level in am rpt CXR: no infiltrate 7.Hypertension , uncontrolled off Cardene drip Increased hydralazine to 100 mg po TID Continue Norvasc 10 mg po Qd D/c clonidine Started Minoxidil 5 mg po QD discontinued Labetalol due to episode of bradycardia add Imdur 30mg daily 8. Dyslipidemia Tg 166 Chol 242 LDL 134 Started Atorvastatin 9.Mild Anemia Most likely dilutional 10.Stress ulcer Prophylaxis Pepcid 11. DVT prophylaxis SCD no anticoag due to ICH 12. BPH started Flomax
--- NOTE | 2016-07-17 12:07 | US ---
PROCEDURE: Ultrasound of the Kidneys HISTORY: MAXX COMPARISON: None available. TECHNIQUE: Sonogram of the kidneys. FINDINGS: RIGHT KIDNEY: Measures: 4.3 x 6 x 11.9 cm. Complex mass perhaps debris laden cyst lower pole right kidney 2.1 x 2 cm. Elective followup assessment advised. No stone, solid mass lesion or hydronephrosis visualized. LEFT KIDNEY: Measures: 4.4 x 5.5 x 11 cm. Normal in size, contour and echogenicity. No stone, solid mass lesion or hydronephrosis visualized. OTHER FINDINGS: None. IMPRESSION: No evidence of obstructive uropathy or stone disease. Indeterminate mass/complex cyst lower pole right kidney which requires further evaluation.
--- NOTE | 2016-07-17 14:29 | CP.PCM.PN ---
Subjective - Date & Time of Evaluation Date of Evaluation: 07/17/16 Time of Evaluation: 23:00 - Subjective Subjective: Awake today NAD Objective - Vital Signs/Intake and Output Vital Signs (last 24 hours): Temp Pulse Resp BP Pulse Ox 98.9 F 87 18 159/59 H 97 07/17/16 12:00 07/17/16 12:00 07/17/16 12:00 07/17/16 12:00 07/17/16 12:00 Intake and Output: 07/17/16 07/17/16 06:59 18:59 Intake Total 350 Output Total 601 Balance -251 - Medications Medications: Current Medications Acetaminophen (Tylenol 325mg Tab) 650 mg PO Q6 PRN PRN Reason: Pain, Mild (1-3) Last Admin: 07/14/16 14:47 Dose: 650 mg Acetaminophen (Tylenol 325mg Tab) 650 mg PO Q6 PRN PRN Reason: Fever >100.4 F Last Admin: 07/15/16 09:04 Dose: 650 mg Amlodipine Besylate (Norvasc) 10 mg PO DAILY [facility] Last Admin: 07/17/16 08:14 Dose: 10 mg Atorvastatin Calcium (Lipitor) 20 mg PO DAILY [facility] Last Admin: 07/17/16 08:14 Dose: 20 mg Docusate Sodium (Colace) 200 mg PO DAILY [facility] Last Admin: 07/17/16 12:08 Dose: 200 mg Famotidine (Pepcid) 40 mg PO HS [facility] Last Admin: 07/16/16 21:00 Dose: 40 mg Glipizide (Glucotrol) 10 mg PO BID [facility] Last Admin: 07/17/16 08:11 Dose: 10 mg Hydralazine HCl (Apresoline) 10 mg IV Q6 PRN PRN Reason: Systolic Blood Pressure Hydralazine HCl (Apresoline) 100 mg PO TID [facility] Last Admin: 07/17/16 08:03 Dose: 100 mg Piperacillin Sod/Tazobactam (Sod 2.25 gm/ Sodium Chloride) 100 mls @ 100 mls/ hr IVPB Q8@0500,1300,2100 [facility] Last Admin: 07/17/16 04:49 Dose: 100 mls/hr Insulin Detemir (Levemir) [address] [facility] Insulin Human Lispro (Humalog) 0 units SC [facility] PRN Reason: Protocol Last Admin: 07/17/16 12:10 Dose: Not Given Insulin Human Lispro (Humalog) 16 units SC AC [facility] Last Admin: 07/17/16 12:11 Dose: 16 units Isosorbide Mononitrate (Imdur) 30 mg PO DAILY [facility] Last Admin: 07/17/16 08:13 Dose: 30 mg Lactulose (Enulose) 20 gm PO DAILY PRN PRN Reason: Constipation Last Admin: 07/17/16 12:07 Dose: 20 gm Minoxidil (Minoxidil) 5 mg PO DAILY [facility] Last Admin: 07/17/16 08:15 Dose: 5 mg Pantoprazole Sodium (Protonix Ec Tab) 40 mg PO DAILY [facility] Last Admin: 07/17/16 08:13 Dose: 40 mg Tamsulosin HCl (Flomax) 0.4 mg PO DAILY [facility] Last Admin: 07/17/16 08:10 Dose: 0.4 mg - Labs Labs: 07/15/16 05:00 07/17/16 06:30 PT 10.8 SECONDS (9.6-11.2) 07/07/16 00:40 INR 1.04 (0.92-1.08) 07/07/16 00:40 APTT 26.9 SECONDS (23.3-32.5) 07/07/16 00:40 - Respiratory Exam Additional comments: Lungs clear - Cardiovascular Exam Cardiovascular Exam: REGULAR RHYTHM - Extremities Exam Additional comments: No eema Assessment and Plan - Assessment and Plan (Free Text) Assessment: Acute on CRF, Slow increase in creat for the last 3 days. May be multifactofial S/P intracranial bleed HTN DM Plan: Suggest gentle hydrarion. Avoid nephrotoxic meds Vanco levels
[2016-07-17 15:49] VITALS: RESP 20
--- NOTE | 2016-07-17 16:08 | PN ---
DATE: 07/17/2016 ROOM: 406 This is a 71-year-old male with recent acute CVA and underlying intracerebral hemorrhage with residua l left-sided weakness and is currently being followed closely for metabolic management because of mar ked hyperglycemic accelerations as noted thereof. His latest chemistry showed a BUN of 54, sodium 144, potassium 4.2, chloride 109, CO2 25, glucose 138 and creatinine 2.9. His latest glucose levels have ranged from 205-318 mg/dL. So at this time, we will continue the same basal and bolus insulin regimen to allow for dose equilibr ation and keep him on the Humalog given as 16 units subQ t.i.d. before meals as ordered. We will con tinue the Levemir given as 50 units subQ at bedtime daily to start tonight. We will continue the low -dose correction scale using Humalog insulin as given. We will obtain serial chemistries and supplem ent accordingly as needed. We will follow. Niki Cesar MD cc: [id number] TT: 07/17/2016 16:07:33 Confirmation # [id number] Dictation # [id number]
[2016-07-17] MEDS ORDERED: Insulin Detemir 100 Units/ml Inj SC SCH (22:00)
[2016-07-18] MEDS: Insulin Lispro (humaLOG) 100 Units/ml Inj SC SCH ×6 (06:45→17:02)
[2016-07-18 07:38] LABS: MEAN CELL VOLUME 85.9 fl (80.0-94.0); MEAN CORPUSCULAR HEMOGLOBIN 29.1 pg (27.0-31.0); MEAN CORPUSCULAR HGB CONC 33.8 g/dL (33.0-37.0); RED CELL DISTRIBUTION WIDTH 13.7 % (11.5-14.5); WHITE BLOOD COUNT 7.2 K/uL (4.8-10.8)
[2016-07-18 07:48] LABS: CALCIUM 8.3 mg/dL (8.4-10.2); POTASSIUM 4.5 MMOL/L (3.6-5.0)
--- NOTE | 2016-07-18 10:55 | CP.PCM.DIS ---
Provider - Provider Date of Admission: 07/07/16 00:51 Attending physician: William Rojas Primary care physician: Maurice Diaz MD Consults: Neurology neurosurgery consult PT/OT/ speech Critical care consult Nephrology consult endo consult Time Spent in preparation of Discharge (in minutes): 20 Hospital Course - Lab Results Lab Results: Micro Results 07/15/16 15:00 Naris MRSA Culture (Admit) - Final MRSA NOT DETECTED 07/10/16 20:53 Blood-Venous Blood Culture - Final NO GROWTH AFTER 5 DAYS 07/10/16 20:53 Blood-Venous Gram Stain - Final TEST NOT PERFORMED 07/10/16 20:53 Blood-Venous Blood Culture - Final NO GROWTH AFTER 5 DAYS 07/10/16 20:53 Blood-Venous Gram Stain - Final TEST NOT PERFORMED 07/07/16 07:52 Naris MRSA Culture (Admit) - Final MRSA NOT DETECTED 07/07/16 05:15 Urine,Catheterized Urine Culture - Final No Growth (<1,000 CFU/ML) Most Recent Lab Values WBC 7.2 K/uL (4.8-10.8) 07/18/16 05:45 RBC 3.03 Mil/uL (4.40-5.90) L 07/18/16 05:45 Hgb 8.8 g/dL (12.0-18.0) L 07/18/16 05:45 Hct 26.0 % (35.0-51.0) L 07/18/16 05:45 MCV 85.9 fl (80.0-94.0) 07/18/16 05:45 MCH 29.1 pg (27.0-31.0) 07/18/16 05:45 MCHC 33.8 g/dL (33.0-37.0) 07/18/16 05:45 RDW 13.7 % (11.5-14.5) 07/18/16 05:45 Plt Count 219 K/uL (130-400) 07/18/16 05:45 MPV 8.1 fl (7.2-11.7) 07/09/16 06:30 Neut % (Auto) 75.2 % (50.0-75.0) H 07/09/16 06:30 Lymph % (Auto) 12.6 % (20.0-40.0) L 07/09/16 06:30 [place] % (Auto) 7.8 % (0.0-10.0) 07/09/16 06:30 Eos % (Auto) 3.1 % (0.0-4.0) 07/09/16 06:30 Baso % (Auto) 1.3 % (0.0-2.0) 07/09/16 06:30 Neut # 7.9 K/uL (1.8-7.0) H 07/09/16 06:30 Lymph # 1.3 K/uL (1.0-4.3) 07/09/16 06:30 [place] # 0.8 K/uL (0.0-0.8) 07/09/16 06:30 Eos # 0.3 K/uL (0.0-0.7) 07/09/16 06:30 Baso # 0.1 K/uL (0.0-0.2) 07/09/16 06:30 Neutrophils % (Manual) 91 % (42-75) H 07/07/16 00:40 Band Neutrophils % 4 % (0-2) H 07/07/16 00:40 Lymphocytes % (Manual) 4 % (20-50) L 07/07/16 00:40 Monocytes % (Manual) 1 % (0-10) 07/07/16 00:40 Platelet Estimate Normal (NORMAL) 07/07/16 00:40 PT 10.8 SECONDS (9.6-11.2) 07/07/16 00:40 INR 1.04 (0.92-1.08) 07/07/16 00:40 APTT 26.9 SECONDS (23.3-32.5) 07/07/16 00:40 Sodium 143 mmol/l (132-148) 07/18/16 05:45 Potassium 4.5 MMOL/L (3.6-5.0) 07/18/16 05:45 Chloride 109 mmol/L (98-107) H 07/18/16 05:45 Carbon Dioxide 24 mmol/L (22-30) 07/18/16 05:45 Anion Gap 15 (10-20) 07/18/16 05:45 BUN 55 mg/dl (9-20) H 07/18/16 05:45 Creatinine 2.9 mg/dL (0.8-1.5) H 07/18/16 05:45 Est GFR ( Amer) 26 07/18/16 05:45 Est GFR (Non-Af Amer) 07/18/16 05:45 POC Glucose (mg/dL) 206 mg/dL (65-110) H 07/18/16 05:27 Random Glucose 184 mg/dL (75-110) H 07/18/16 05:45 Hemoglobin A1c 6.1 % (4.2-6.5) 07/07/16 08:26 Calcium 8.3 mg/dL (8.4-10.2) L 07/18/16 05:45 Iron 74 ug/dL (49-181) 07/07/16 08:35 TIBC 354 ug/dL (250-450) 07/07/16 08:35 % Saturation 21 % (20-55) 07/07/16 08:35 Total Bilirubin 0.4 mg/dl (0.2-1.3) 07/15/16 05:00 AST 26 U/L (17-59) 07/15/16 05:00 ALT 42 U/L (21-72) 07/15/16 05:00 Alkaline Phosphatase 69 U/L (38-126) 07/15/16 05:00 Total Creatine Kinase 784 U/L (55-170) H 07/07/16 08:35 Troponin I 0.0240 ng/mL (0.00-0.120) 07/07/16 00:40 Total Protein 6.3 G/DL (6.3-8.2) 07/15/16 05:00 Albumin 3.4 g/dL (3.5-5.0) L 07/15/16 05:00 Globulin 2.9 gm/dL (2.2-3.9) 07/15/16 05:00 Albumin/Globulin Ratio 1.2 (1.0-2.1) 07/15/16 05:00 Triglycerides 137 mg/DL (0-149) 07/15/16 05:00 Cholesterol 112 mg/dL (0-199) 07/15/16 05:00 LDL Cholesterol Direct 53 mg/dL (0-129) 07/15/16 05:00 HDL Cholesterol 30 MG/DL (30-70) 07/15/16 05:00 Vitamin B12 801 pg/mL (239-931) 07/07/16 08:35 Folate > 20.0 ng/mL 07/07/16 08:35 Procalcitonin 0.08 NG/ML (0.19-0.49) L 07/12/16 04:20 Free T4 1.48 ng/dL (0.78-2.19) 07/15/16 05:00 Thyroxine (T4) 8.04 ug/dl (5.5-11.0) 07/15/16 05:00 TSH 3rd Generation 1.74 mIU/ML (0.46-4.68) 07/15/16 05:00 Urine Color Yellow (YELLOW) 07/10/16 09:00 Urine Clarity Clear (Clear) 07/10/16 09:00 Urine pH 5.0 (5.0-8.0) 07/10/16 09:00 Ur Specific [place] 1.014 (1.003-1.030) 07/10/16 09:00 Urine Protein 100 mg/dL (NEGATIVE) 07/10/16 09:00 Urine Glucose (UA) 50 mg/dL (Normal) 07/10/16 09:00 Urine Ketones Negative mg/dL (NEGATIVE) 07/10/16 09:00 Urine Blood Small (NEGATIVE) 07/10/16 09:00 Urine Nitrate Negative (NEGATIVE) 07/10/16 09:00 Urine Bilirubin Negative (NEGATIVE) 07/10/16 09:00 Urine Urobilinogen 0.2-1.0 mg/dL (0.2-1.0) 07/10/16 09:00 Ur Leukocyte Esterase Neg [place]/uL (Negative) 07/10/16 09:00 Urine RBC (Auto) 5 /hpf (0-3) H 07/07/16 05:15 Urine Microscopic WBC 3 /hpf (0-5) 07/10/16 09:00 Ur Squamous Epith Cells 1 /hpf (0-5) 07/10/16 09:00 Urine Bacteria Rare (<OCC) 07/07/16 05:15 Vancomycin Peak 12.4 ug/mL (30.0-40.0) L 07/17/16 14:22 Random Vancomycin 9.6 ug/mL 07/18/16 05:45 Blood Type O POSITIVE 07/07/16 00:40 Blood Type Confirm O POSITIVE 07/07/16 02:11 Antibody Screen Negative 07/07/16 00:40 BBK History Checked No verified bt 07/07/16 00:40 - Hospital Course Hospital Course: 71 years old male with hx of HTN, DM II and Prostate Cancer, brought to the ED with left sided weakness. He fell out of bed and could not get up from the floor where he remained for approximately 24 hours until his son found him. The NIHSS was 14. CT head showed acute right basal ganglia hematoma with edema . Patient was admitted in ICU, neurology and neurosurgery were consulted. Repeat Ct head showed stable bleed , tiny new left occipital lobe bleed. He was started on Cardene drip initially for BP control and at present on multiple Po meds for BP control, Hydralazine, Minoxidil, norvasc and Imdur.During this admission his BS have been very uncontrolled . Endo was consulted and started on Humalog 16 units TID and levemir 50 units HS with better control of BS. He has left sided weakness,hemineglect and dysarthria . He was noted to developr persistent fever that initially was thought to vbe central in origin. Repeat CXCr showed lower lobe infiltrates most likely aspiration pneumonia/ He was started on IV Zosyn and given 1 dose of vancomycin IV. At present fever free for > than 48 hours At present hemodynamically stable. Will discharge to acute rehab, [facility] for physical therapy Details of this admission listed below: 1.Intracranial Hemorrhage with left hemiplegia, dysarthria , hemineglect Repeat Ct : Stable acute right basal ganglia hematoma with surrounding edema or ischemic parenchyma. Stable 3 mm midline shift towards the left. Bilateral intraventricular hemorrhage, right greater than left. Tiny new focal hemorrhage left occipital lobe which may be parenchymal or may represent a tiny amount of subarachnoid blood. Avoid any antiplatelet or anticoagulation Patient with dysarthria, left hemineglect ,dysphagia and left hemiparesis Neurology and neurosurgery consulted. No surgical intervention indicated Control BP . on multiple Po antihypertensives , hydralazine, Norvasc, minoxidil , imdur Video swallow showed no aspiration only intermittent penetration with liquids keep HOB elevated Continue Physical therapy/ Occupational Therapy For discharge to acute rehab today 2. Paroxysmal A Fib Back in SR on monitor no Anticoagulation due to ICH 3. Acute kidney injury unknown prior kidney function Crea 2.9 Nephrology consulted Renal sonogram :suspicious complex renal mass- unable to perform renal CT at present due to renal function Will check Ct without contrast to better evaluate Can have further work up if needed as outpatient 4. Acute rhabdomyolysis resolved with hydration 5. DM type II with Hyperglycemia Hgba1c 6.1 ? Continue monitoring accu with Novolog sliding scale on Glipizide 10 mg PO bID Increased Levemir to 50 units SQ HS, humaklog 16 units SQ TID Endo - Dr Cam consulted 6. Pneumonia poss Aspiration PNA pt was febrile, no leukocytosis Fever now resolved Urine c/s: neg Blood c/s; Neg so far CXR showed lower lobe infiltrate on IV Zosyn, since 08/11/16 Given vancomycin x 1 dose rpt CXR: no infiltrate Continue Zosyn Iv for 5 more days 7.Hypertension , uncontrolled off Cardene drip on hydralazine to 100 mg po TID, Norvasc 10 mg po Qd,Minoxidil 5 mg po QD, Imdur 30mg daily discontinued Labetalol due to episode of bradycardia Discontinued Enalapril due to renal failure 8. Dyslipidemia Tg 166 Chol 242 LDL 134 Started Atorvastatin 9.Mild Anemia Most likely dilutional 10.Stress ulcer Prophylaxis Pepcid 11. DVT prophylaxis SCD no anticoag due to ICH 12. BPH started Flomax 13. Hickups started gabapentin Discharge Exam - Head Exam Head Exam: ATRAUMATIC, NORMAL INSPECTION, NORMOCEPHALIC - Eye Exam Eye Exam: Normal appearance, PERRL Pupil Exam: NORMAL ACCOMODATION - ENT Exam ENT Exam: Mucous Membranes Moist, Normal Exam - Neck Exam Neck exam: Full Rom, Normal Inspection - Respiratory Exam Respiratory Exam: Clear to PA & Lateral, NORMAL BREATHING PATTERN. absent: Rales, Rhonchi, Wheezes, Respiratory Distress - Cardiovascular Exam Cardiovascular Exam: REGULAR RHYTHM, RRR, +S1, +S2. absent: JVD - GI/Abdominal Exam GI & Abdominal Exam: Normal Bowel Sounds, Soft. absent: Distended, Guarding, Rebound, Tenderness - Rectal Exam Rectal Exam: Deferred - Extremities Exam Extremities exam: normal capillary refill, normal inspection, pedal pulses present - Back Exam Back exam: NORMAL INSPECTION - Neurological Exam Neurological exam: Alert, Reflexes Normal Additional comments: with left side hemiparesis 4/5 dysarthria left hemineglect left facial droop - Psychiatric Exam Psychiatric exam: Normal Affect, Normal Mood - Skin Skin Exam: Dry, Intact, Normal Color, Warm Discharge Plan - Follow Up Plan Condition: STABLE Disposition: REHAB FACILITY/REHAB UNIT Patient education suggested?: No Instructions: Hemorrhagic Stroke (DC), Aspiration Pneumonia (DC) Additional Instructions: Finely chopped , nectar thick heart healthy, low CHO diet Referrals: Maurice Diaz MD [Primary Care Provider] -
[2016-07-18] MEDS: Pantoprazole 40 mg EC Tab PO SCH (11:17)
--- NOTE | 2016-07-18 11:18 | CP.PCM.PN ---
Subjective - Date & Time of Evaluation Date of Evaluation: 07/18/16 Time of Evaluation: 11:16 - Subjective Subjective: Patient appeared to be stable Vital signs stable Blood pressure better controlled Chest clear Heart no rubs Abdomen soft Extremity no edema Impression CK D stage IV stable Patient has CT scan of the abdomen and to check on the questionable mass in the kidney and the report is pending not available Patient need follow-up as outpatient for CK D stage IV among other things Objective - Vital Signs/Intake and Output Vital Signs (last 24 hours): Temp Pulse Resp BP Pulse Ox 98.7 F 85 20 158/68 H 97 07/18/16 08:00 07/18/16 08:00 07/18/16 08:00 07/18/16 08:00 07/18/16 08:00 Intake and Output: 07/18/16 07/18/16 06:59 18:59 Intake Total 1590 Output Total 800 Balance 790 - Medications Medications: Current Medications Acetaminophen (Tylenol 325mg Tab) 650 mg PO Q6 PRN PRN Reason: Pain, Mild (1-3) Last Admin: 07/14/16 14:47 Dose: 650 mg Acetaminophen (Tylenol 325mg Tab) 650 mg PO Q6 PRN PRN Reason: Fever >100.4 F Last Admin: 07/15/16 09:04 Dose: 650 mg Amlodipine Besylate (Norvasc) 10 mg PO DAILY [facility] Last Admin: 07/17/16 08:14 Dose: 10 mg Atorvastatin Calcium (Lipitor) 20 mg PO DAILY [facility] Last Admin: 07/17/16 08:14 Dose: 20 mg Docusate Sodium (Colace) 200 mg PO DAILY [facility] Last Admin: 07/17/16 12:08 Dose: 200 mg Famotidine (Pepcid) 40 mg PO HS [facility] Last Admin: 07/17/16 22:03 Dose: 40 mg Gabapentin (Neurontin) 100 mg PO STAT STA Stop: 07/18/16 11:14 Glipizide (Glucotrol) 10 mg PO BID [facility] Last Admin: 07/17/16 18:04 Dose: 10 mg Hydralazine HCl (Apresoline) 10 mg IV Q6 PRN PRN Reason: Systolic Blood Pressure Hydralazine HCl (Apresoline) 100 mg PO TID [facility] Last Admin: 07/17/16 16:51 Dose: 100 mg Piperacillin Sod/Tazobactam (Sod 2.25 gm/ Sodium Chloride) 100 mls @ 100 mls/ hr IVPB Q8@0500,1300,2100 [facility] Last Admin: 07/18/16 05:23 Dose: 100 mls/hr Insulin Detemir (Levemir) 50 units SC HS [facility] Last Admin: 07/17/16 22:02 Dose: 50 units Insulin Human Lispro (Humalog) 0 units SC ACHS [facility] PRN Reason: Protocol Last Admin: 07/18/16 06:45 Dose: Not Given Insulin Human Lispro (Humalog) 16 units SC AC [facility] Last Admin: 07/18/16 10:56 Dose: Not Given Isosorbide Mononitrate (Imdur) 30 mg PO DAILY [facility] Last Admin: 07/17/16 08:13 Dose: 30 mg Lactulose (Enulose) 20 gm PO DAILY PRN PRN Reason: Constipation Last Admin: 07/17/16 12:07 Dose: 20 gm Minoxidil (Minoxidil) 5 mg PO DAILY [facility] Last Admin: 07/17/16 08:15 Dose: 5 mg Pantoprazole Sodium (Protonix Ec Tab) 40 mg PO DAILY [facility] Last Admin: 07/17/16 08:13 Dose: 40 mg Tamsulosin HCl (Flomax) 0.4 mg PO DAILY [facility] Last Admin: 07/17/16 08:10 Dose: 0.4 mg - Labs Labs: 07/18/16 05:45 07/18/16 05:45 PT 10.8 SECONDS (9.6-11.2) 07/07/16 00:40 INR 1.04 (0.92-1.08) 07/07/16 00:40 APTT 26.9 SECONDS (23.3-32.5) 07/07/16 00:40
--- NOTE | 2016-07-18 11:24 | CT ---
PROCEDURE: CT Abdomen and Pelvis without intravenous contrast HISTORY: complex mass right kidney COMPARISON: None. TECHNIQUE: Axial and reformatted coronal and sagittal CT images of the abdomen and pelvis were obtained after oral contrast administration.. Contrast Dose: 0 Radiation dose: Total exam DLP = 894.89 mGy-cm. This CT exam was performed using one or more of the following dose reduction techniques: Automated exposure control, adjustment of the mA and/or kV according to patient size, and/or use of iterative reconstruction technique. FINDINGS: LOWER THORAX: No evidence of acute pathology at the lung bases. Linear opacity seen at the right lung base may represent atelectasis or scar tissue. No evidence of significant pleural effusion. The heart is mildly to moderately enlarged. LIVER: 13.5 millimeter low-attenuation lesion seen at the liver image 19 series 2 may represent benign cyst. The liver is mildly enlarged. GALLBLADDER AND BILE DUCTS: Unremarkable. PANCREAS: There is 13 millimeter low-attenuation lesions seen at the pancreatic head image 32 series 2. The main pancreatic duct is not dilated. SPLEEN: Unremarkable. ADRENALS: Unremarkable. No mass. KIDNEYS AND URETERS: 2 centimeter heterogeneous low-attenuation lesion at the lower pole of the right kidney that not fully characterized in this exam. Findings may represent complex cyst. There is also partially exophytic low-attenuation lesion at the midpole of the right kidney measures 1.5 centimeter. No evidence of nephrolithiasis or hydronephrosis. VASCULATURE: Unremarkable. No aortic aneurysm. BOWEL: Diffuse colonic diverticulosis seen without evidence of diverticulitis. No evidence of bowel obstruction. APPENDIX: Unremarkable. Normal appendix. PERITONEUM: Unremarkable. No free fluid. No free air. LYMPH NODES: Unremarkable. No enlarged lymph nodes. BLADDER: Unremarkable. REPRODUCTIVE: Unremarkable. BONES: No acute fracture. OTHER FINDINGS: None. IMPRESSION: Limited assessment of the renal lesion without IV contrast administration. 2 centimeter heterogeneous low-attenuation lesion at the lower pole of the right kidney likely represent complex cyst or hemorrhagic cyst. Further assessment by enhanced CT or MRI is suggested. Alternatively close interval follow-up reassessment by ultrasound may be obtained. Additional incidental findings as described above.
[2016-07-18] MEDS ORDERED: Chlorhexidine Gluconate 1 APPL/PKT TP ONE (14:34)
[2016-07-18 15:54] VITALS: BP 160/54; TEMP 98.3
[2016-07-18 16:24] VITALS: O2SAT 94
--- NOTE | 2016-07-18 16:43 | PN ---
DATE: 07/18/2016 ROOM: 406 This is a 71-year-old male with recent uncontrolled type 2 insulin-requiring diabetes, now being foll owed closely for metabolic management. His glycemic levels are fluctuating, but much improved at thi s time. His oral intake also remains quite variable as per the nursing staff. The glucose values have ranged from 184-206 and 276 mg/dL. It was 233-297 last night as noted. His latest chemistries include a BUN of 55, sodium 143, potassium 4.5, chloride 109, CO2 24, glucose 184 and creatinine 2.9. So at this time, we will continue the same basal and bolus insulin regimen to allow for dose equilibr ation and keep him on the Humalog given as 16 units subQ t.i.d. before meals as ordered with Levemir given as 50 units subQ at bedtime daily as given. We will titrate incrementally as indicated to opti veronica metabolic control. We will follow. Niki Cesar MD cc: [id number] TT: 07/18/2016 16:42:10 Confirmation # [id number] Dictation # [id number]
[2016-07-18 17:00] VITALS: PULSE 81
== END 2016-07-18 19:40 | DRG 85 ==
LOC: H.ER 00:02 → H.ERHOLD 00:51 → H.ICU/CCU 06:48 → H.TEL 07-15 16:01
PROVIDERS: ADMIT Internal Medicine; ATTEND Internal Medicine
DX: S06.340A Traumatic hemorrhage of right cerebrum without loss of consciousness, initial encounter (principal); J18.9 Pneumonia, unspecified organism; N17.9 Acute kidney failure, unspecified; M62.82 Rhabdomyolysis; E11.65 Type 2 diabetes mellitus with hyperglycemia; E87.5 Hyperkalemia; I48.0 Paroxysmal atrial fibrillation; G81.94 Hemiplegia, unspecified affecting left nondominant side; R47.01 Aphasia; E86.0 Dehydration; R13.10 Dysphagia, unspecified; I10 Essential (primary) hypertension; E78.5 Hyperlipidemia, unspecified; D64.89 Other specified anemias; N40.0 Benign prostatic hyperplasia without lower urinary tract symptoms; W06.XXXA Fall from bed, initial encounter; Z86.73 Personal history of transient ischemic attack (TIA), and cerebral infarction without residual deficits; Z85.46 Personal history of malignant neoplasm of prostate; Z87.891 Personal history of nicotine dependence; Z79.82 Long term (current) use of aspirin; Y92.003 Bedroom of unspecified non-institutional (private) residence as the place of occurrence of the external cause